=== PATIENT | male | born 1945 | race Two or more races ===

== ENCOUNTER 2021-10-02 10:15 | Inpatient (IN) | payer OTHER, MEDICAID ==
[~2021-10-02] VITALS: Ht 175.3 cm; Wt 91.0 kg
[~2021-10-02 10:15] MED LIST: ALBUAER3 IN; LEVO500T31 PO; OMEP20CA74 PO
[2021-10-02 11:33] LABS: Eosinophils # (auto) 0.2 10 ^3/uL (0-0.8); Hemoglobin 9.7 g/dL (13.5-17.5); Lymphocytes # (auto) 1.2 10 ^3/uL (0.4-5.4); White Blood Cell 6.7 10^3/uL (4.4-10.8)
[2021-10-02 11:35] LABS: Basophils # (auto) 0.1 10 ^3/uL (0-0.2); Basophils % (auto) 2.2 % (0.0-2.0); Eosinophils % (auto) 2.4 % (0.0-7.0); Hematocrit 33.9 % (41.0-53.0); Mean Corpuscular Hemoglobin 17.8 pg (28.0-32.0); Mean Corpuscular Hgb Conc. 28.7 g/dL (32.0-36.0); Mean Corpuscular Volume 61.9 fL (80.0-100.0); Monocytes # (auto) 0.7 10 ^3/uL (0-1.3); Monocytes % (auto) 9.7 % (0.0-12.0); Neutrophils # (auto) 4.6 10 ^3/uL (1.6-8.6); Neutrophils % (auto) 67.7 % (37.0-80.0); Red Blood Cells 5.47 10^6/uL (4.5-5.90); Red Cell Distribution Width 19.7 % (11.8-14.3)
[2021-10-02 12:05] LABS: Albumin 3.3 g/dL (3.4-5.0); Calcium 8.8 mg/dL (8.5-10.1); Potassium 4.1 mmol/L (3.5-5.1)
[2021-10-02 12:11] LABS: BUN/Creatinine Ratio 20.5; Bilirubin, Total 0.7 mg/dL (0.2-1.0); Total Protein 7.6 g/dL (6.4-8.2)
[2021-10-02 13:57] LABS: Urine Bacteria NONE SEEN /hpf (None Seen); Urine Blood Negative /uL (Negative); Urine Specific Gravity 1.024 (1.001-1.035); Urine WBC 3 /hpf (0 - 3)
[2021-10-02 14:06] LABS: Lactic Acid w/Reflex 2.1 mmol/L (0.4-2.0)
[2021-10-02] MEDS ORDERED: ACETAMINOPHEN 325 MG TAB PO PRN (15:15)
[2021-10-02] MEDS ORDERED: DOCUSATE SOD 100 MG CAP PO PRN (15:15)
[2021-10-02] MEDS ORDERED: MORPHINE SULFATE INJ 2 MG/ml SYRG IV PRN ×2 (15:15)
[2021-10-02] MEDS ORDERED: NITROGLYCERIN 0.4 MG SL TAB SL PRN (15:15)
[2021-10-02] MEDS ORDERED: ONDANSETRON HCL 4 MG/2 ML VIAL IV PRN (15:15)
[2021-10-02] MEDS ORDERED: HYDROcodone-ACET 5/325MG TAB PO PRN (15:15)
[2021-10-02] MEDS ORDERED: ENOXAPARIN SOD 100 MG/1 ML SYRINGE SC ONE (15:15)
[2021-10-02 15:42] LABS: Cholesterol 165 mg/dL (< 200)
[2021-10-02 15:45] LABS: HDL Cholesterol 37 mg/dL (40-59); LDL Cholesterol 115 mg/dL (< 100); Triglycerides 146 mg/dL (< 150)
[2021-10-02] MEDS ORDERED: IPRATROPIUM BROM 0.5 MG/2.5ML INH SOL NEB PRN (15:45)
[2021-10-02] MEDS ORDERED: SODIUM CHLORIDE 0.9% 1,000 ML IV ONE (15:45)
[2021-10-02] MEDS ORDERED: ALBUTEROL SULF 2.5 MG/0.5ML(0.5%) NEB SOLN NEB PRN (15:45)
[2021-10-02 16:17] VITALS: BP 115/20
[2021-10-02] MEDS: ENOXAPARIN SOD 100 MG/1 ML SYRINGE SC SCH (16:44)
[2021-10-02] MEDS ORDERED: LEVO50TA7 PO (22:59)
[2021-10-03 00:23] VITALS: BP 127/70
[2021-10-03 05:26] LABS: Basophils # (auto) 0.1 10 ^3/uL (0-0.2); Eosinophils # (auto) 0.3 10 ^3/uL (0-0.8); Hemoglobin 9.9 g/dL (13.5-17.5); Lymphocytes # (auto) 1.1 10 ^3/uL (0.4-5.4); Monocytes # (auto) 0.8 10 ^3/uL (0-1.3)
[2021-10-03 05:28] LABS: Eosinophils % (auto) 4.3 % (0.0-7.0); Hematocrit 33.7 % (41.0-53.0); Lymphocytes % (auto) 18.9 % (10.0-50.0); Mean Corpuscular Hemoglobin 18.1 pg (28.0-32.0); Mean Corpuscular Hgb Conc. 29.3 g/dL (32.0-36.0); Mean Corpuscular Volume 61.7 fL (80.0-100.0); Monocytes % (auto) 13.8 % (0.0-12.0); Neutrophils # (auto) 3.7 10 ^3/uL (1.6-8.6); Nucleated Red Blood Cells % 0.1 %; Red Blood Cells 5.46 10^6/uL (4.5-5.90); Red Cell Distribution Width 19.6 % (11.8-14.3); White Blood Cell 6.1 10^3/uL (4.4-10.8)
[2021-10-03 05:32] VITALS: BP 97/51
[2021-10-03 05:48] LABS: Calcium 8.6 mg/dL (8.5-10.1)
[2021-10-03 05:53] LABS: BUN/Creatinine Ratio 19.6; Bilirubin, Total 0.6 mg/dL (0.2-1.0); Total Protein 7.1 g/dL (6.4-8.2)
[2021-10-03 08:00] VITALS: BP 120/67
[2021-10-03] MEDS: FERROUS SULFATE 325mg EC TAB PO SCH (09:34)
[2021-10-03] MEDS: cefTRIAXone 1GM/50ML D5W 50 ML IV SCH (09:34)
[2021-10-03] MEDS: ENOXAPARIN SOD 100 MG/1 ML SYRINGE SC SCH ×2 (10:02→21:27)
[2021-10-03 11:05] LABS: Ferritin 5.7 ng/mL (10-322)
[2021-10-03 13:00] VITALS: BP 119/62
[2021-10-03 16:52] VITALS: BP 118/67
[2021-10-03 22:03] VITALS: BP 116/62
[2021-10-04 05:12] LABS: Basophils # (auto) 0.1 10 ^3/uL (0-0.2); Eosinophils # (auto) 0.3 10 ^3/uL (0-0.8); Monocytes # (auto) 0.7 10 ^3/uL (0-1.3); Neutrophils # (auto) 3.3 10 ^3/uL (1.6-8.6); Nucleated Red Blood Cells % 0.1 %; White Blood Cell 5.4 10^3/uL (4.4-10.8)
[2021-10-04 05:14] LABS: Basophils % (auto) 1.6 % (0.0-2.0); Eosinophils % (auto) 5.5 % (0.0-7.0); Hematocrit 32.7 % (41.0-53.0); Hemoglobin 9.6 g/dL (13.5-17.5); Lymphocytes # (auto) 1.1 10 ^3/uL (0.4-5.4); Lymphocytes % (auto) 20.1 % (10.0-50.0); Mean Corpuscular Hemoglobin 17.9 pg (28.0-32.0); Mean Corpuscular Hgb Conc. 29.3 g/dL (32.0-36.0); Mean Corpuscular Volume 61.2 fL (80.0-100.0); Monocytes % (auto) 12.1 % (0.0-12.0); Neutrophils % (auto) 60.7 % (37.0-80.0); Red Blood Cells 5.34 10^6/uL (4.5-5.90); Red Cell Distribution Width 19.5 % (11.8-14.3)
[2021-10-04 05:28] VITALS: BP 114/63
[2021-10-04 05:30] LABS: Albumin 3.1 g/dL (3.4-5.0); BUN/Creatinine Ratio 15.7; Calcium 8.9 mg/dL (8.5-10.1); Potassium 4.4 mmol/L (3.5-5.1)
[2021-10-04 05:33] LABS: Bilirubin, Total 0.4 mg/dL (0.2-1.0); Total Protein 6.8 g/dL (6.4-8.2)
[2021-10-04 09:00] VITALS: BP 109/64
[2021-10-04] MEDS: FERROUS SULFATE 325mg EC TAB PO SCH (09:36)
[2021-10-04] MEDS: cefTRIAXone 1GM/50ML D5W 50 ML IV SCH (09:36)
[2021-10-04] MEDS: ENOXAPARIN SOD 100 MG/1 ML SYRINGE SC SCH ×2 (09:37→22:11)
[2021-10-04 13:00] VITALS: BP 110/61
[2021-10-04 22:00] VITALS: BP 103/54
[2021-10-05 05:00] VITALS: BP 107/56
[2021-10-05 07:40] VITALS: BP 104/58
[2021-10-05 08:57] VITALS: BP 107/60
[2021-10-05] MEDS: cefTRIAXone 1GM/50ML D5W 50 ML IV SCH (09:28)
[2021-10-05] MEDS: ENOXAPARIN SOD 100 MG/1 ML SYRINGE SC SCH ×2 (09:28→22:15)
[2021-10-05] MEDS: FERROUS SULFATE 325mg EC TAB PO SCH (09:29)
[2021-10-05] MEDS ORDERED: GASTROGRAFIN 120 ML SOL ONE (09:59)
[2021-10-05 13:00] VITALS: BP 124/49
[2021-10-05 17:21] VITALS: BP 87/50
[2021-10-05 22:00] VITALS: BP 91/45
[2021-10-06 05:00] VITALS: BP 103/60
[2021-10-06] MEDS: LEVOTHYROXINE SODIUM 50 MCG TAB PO SCH (05:50)
[2021-10-06 07:10] LABS: Hematocrit 31.2 % (41.0-53.0); Hemoglobin 9.5 g/dL (13.5-17.5)
[2021-10-06 07:14] LABS: Calcium 9.1 mg/dL (8.5-10.1)
[2021-10-06 07:22] LABS: Magnesium 2.4 mg/dL (1.6-2.6)
[2021-10-06 08:04] VITALS: BP 101/58
[2021-10-06] MEDS: FERROUS SULFATE 325mg EC TAB PO SCH (09:00)
[2021-10-06] MEDS: ENOXAPARIN SOD 100 MG/1 ML SYRINGE SC SCH ×2 (09:00→21:47)
[2021-10-06 13:00] VITALS: BP 114/65
[2021-10-06] MEDS: PANTOPRAZOLE 40 MG/10 ML VIAL INJ IV SCH (13:50)
[2021-10-06 16:30] VITALS: BP 113/65
[2021-10-06 20:00] VITALS: BP 121/62
[2021-10-06] MEDS: metroNIDAZOLE 500MG/100ML 100 ML IV SCH (21:48)
[2021-10-06 22:00] VITALS: BP 121/62
[2021-10-07 05:00] VITALS: BP 113/59
[2021-10-07] MEDS: LEVOTHYROXINE SODIUM 50 MCG TAB PO SCH (06:21)
[2021-10-07] MEDS: metroNIDAZOLE 500MG/100ML 100 ML IV SCH (06:21)
[2021-10-07 07:04] LABS: Hemoglobin 9.5 g/dL (13.5-17.5)
[2021-10-07 07:06] LABS: Hematocrit 31.4 % (41.0-53.0)
[2021-10-07 09:00] VITALS: BP 103/66
[2021-10-07] MEDS: FERROUS SULFATE 325mg EC TAB PO SCH (09:52)
[2021-10-07] MEDS: ENOXAPARIN SOD 100 MG/1 ML SYRINGE SC SCH ×2 (09:53→23:24)
[2021-10-07] MEDS: PANTOPRAZOLE 40 MG/10 ML VIAL INJ IV SCH (09:53)
[2021-10-07 13:00] VITALS: BP 102/62
[2021-10-07 16:56] VITALS: BP 113/61
[2021-10-08] VITALS: BP 113/61
[2021-10-08 05:02] VITALS: BP 109/57
[2021-10-08] MEDS: LEVOTHYROXINE SODIUM 50 MCG TAB PO SCH (06:57)
[2021-10-08 09:00] VITALS: BP 123/69
[2021-10-08] MEDS ORDERED: SACUBITRIL-VALSARTAN 24mg/26mg TAB PO SCH (10:00)
[2021-10-08] MEDS: FERROUS SULFATE 325mg EC TAB PO SCH (10:01)
[2021-10-08] MEDS: PANTOPRAZOLE 40 MG/10 ML VIAL INJ IV SCH (10:01)
[2021-10-08] MEDS: ENOXAPARIN SOD 100 MG/1 ML SYRINGE SC SCH (10:01)
[2021-10-08] MEDS ORDERED: DOCU-94 PO (15:52)
[2021-10-08] MEDS ORDERED: FER325T PO (15:52)
[2021-10-08] MEDS ORDERED: PANT40TA2 PO (15:52)
[2021-10-08] MEDS ORDERED: ALBUAER3 IN (15:58)
[2021-10-08] MEDS ORDERED: APIX5TAB4 PO (15:58)
== END 2021-10-08 17:15 | disposition home or self-care (01) | DRG 393 ==
LOC: ER 10:15 → TELE 15:12 → TELE-WESTW 22:16
PROVIDERS: ADMIT Family Medicine; ATTEND Internal Medicine
DX: K40.90 Unilateral inguinal hernia, without obstruction or gangrene, not specified as recurrent (principal); I26.99 Other pulmonary embolism without acute cor pulmonale; I82.413 Acute embolism and thrombosis of femoral vein, bilateral; J98.11 Atelectasis; E87.2 Acidosis; E46 Unspecified protein-calorie malnutrition; J96.10 Chronic respiratory failure, unspecified whether with hypoxia or hypercapnia; I50.42 Chronic combined systolic (congestive) and diastolic (congestive) heart failure; I82.441 Acute embolism and thrombosis of right tibial vein; Z20.822 Contact with and (suspected) exposure to COVID-19; N45.2 Orchitis; D50.9 Iron deficiency anemia, unspecified; E03.9 Hypothyroidism, unspecified; E11.9 Type 2 diabetes mellitus without complications; E66.9 Obesity, unspecified; E78.5 Hyperlipidemia, unspecified; I11.0 Hypertensive heart disease with heart failure; I25.10 Atherosclerotic heart disease of native coronary artery without angina pectoris; K59.00 Constipation, unspecified; J44.9 Chronic obstructive pulmonary disease, unspecified; Z82.49 Family history of ischemic heart disease and other diseases of the circulatory system; Z83.3 Family history of diabetes mellitus; Z86.16 Personal history of COVID-19; Z87.891 Personal history of nicotine dependence; Z99.81 Dependence on supplemental oxygen; Z68.30 Body mass index [BMI] 30.0-30.9, adult
CPT/HCPCS: 36415; 71045; 71275; 74176; 74250; 76870; 80048; 80053; 80061; 81001; 81241; 82270; 82607; 82728; 83036; 83540; 83550; 83605; 83615; 83735; 83880; 84443; 84484; 85014; 85018; 85025; 85045; 85301; 85302; 85303; 85305; 85306; 85379; 85613; 85670; 85705; 85732; 86147; 86880; 87086; 93005; 93306; 93970; 97110; 97116; 97163; 97530; C9113; G0378; J0696; J3490

== ENCOUNTER 2023-12-24 07:45 | Inpatient (IN) | payer OTHER, MEDICAID ==
[~2023-12-24] VITALS: Ht 175.3 cm
[2023-12-24] VITALS (15 sets, daily range): BP systolic 115–158; BP diastolic 63–100; PULSE 74–113; RESP 14–24; TEMP 98.1–98.3; O2SAT 90–97
[~2023-12-24 07:45] MED LIST changes: +APIX5TAB4 PO; +DOCU-94 PO; +FER325T PO; -LEVO500T31 PO; +LEVO50TA7 PO; -OMEP20CA74 PO; +PANT40TA2 PO
[2023-12-24] MEDS: methylPREDNISolone SOD SUCC 125 MG/2 ML VL IV ONE (08:39)
[2023-12-24 08:40] LABS: Chloride 105 mmol/L (98-107); Potassium 4.2 mmol/L (3.5-5.1); Sodium 140 mmol/L (136-145)
[2023-12-24 08:41] LABS: Anion Gap 6 (5-15); Calcium 10.2 mg/dL (8.7-10.4); Carbon Dioxide 29 mmol/L (20-30)
[2023-12-24 08:46] LABS: BUN/Creatinine Ratio 15.6 (10.0-20.0); Blood Urea Nitrogen 12 mg/dL (9-23); Glucose 93 mg/dL (74-106)
[2023-12-24 08:48] LABS: Basophils # (auto) 0.1 10 ^3/uL (0-0.2); Eosinophils # (auto) 0.1 10 ^3/uL (0-0.8); Hemoglobin 14.9 g/dL (13.5-17.5); Mean Corpuscular Hemoglobin 24.8 pg (28.0-32.0); Red Cell Distribution Width 17.8 % (11.8-14.3); White Blood Cell 10.3 10^3/uL (4.4-10.8)
[2023-12-24 08:49] LABS: Basophils % (auto) 0.7 % (0.0-2.0); Eosinophils % (auto) 0.9 % (0.0-7.0); Hematocrit 46.4 % (41.0-53.0); Lymphocytes # (auto) 1.6 10 ^3/uL (0.4-5.4); Lymphocytes % (auto) 15.5 % (10.0-50.0); Mean Corpuscular Hgb Conc. 32.1 g/dL (32.0-36.0); Mean Corpuscular Volume 77.2 fL (80.0-100.0); Monocytes # (auto) 1.1 10 ^3/uL (0-1.3); Monocytes % (auto) 10.6 % (0.0-12.0); Neutrophils # (auto) 7.5 10 ^3/uL (1.6-8.6); Neutrophils % (auto) 72.3 % (37.0-80.0); Nucleated Red Blood Cells % 0.2 %; Platelet Count (auto) 357 10^3/uL (140-450); Red Blood Cells 6.01 10^6/uL (4.5-5.90)
[2023-12-24] MEDS: ALBUTEROL SULF 2.5 MG/0.5ML(0.5%) NEB SOLN NEB ONE (09:03)
[2023-12-24] MEDS: IPRATROPIUM BROM 0.5 MG/2.5ML INH SOL NEB ONE (09:03)
[2023-12-24 10:24] LABS: Urine Bacteria None Seen /hpf (None Seen)
[2023-12-24 10:31] LABS: Urine Blood Negative /uL (Negative); Urine Clarity Clear (Clear); Urine Color Light-Yellow (Yellow); Urine Protein, UAD Negative (Negative); Urine Specific Gravity 1.021 (1.001-1.035); Urine Urobilinogen Normal (Negative); Urine WBC 4 /hpf (0 - 3); Urine pH 5.5 (5.0-9.0)
[2023-12-24] MEDS ORDERED: NITROGLYCERIN 0.4 MG SL TAB SL PRN (13:15)
[2023-12-24] MEDS ORDERED: MORPHINE SULFATE INJ 2 MG/ml SYRG IV PRN ×2 (13:15)
[2023-12-24] MEDS ORDERED: CHOL20002 PO (13:37)
[2023-12-24] MEDS ORDERED: PANT40T PO (13:37)
[2023-12-24] MEDS ORDERED: APIX5TAB PO (13:37)
[2023-12-24] MEDS: IPRATROPIUM BROM 0.5 MG/2.5ML INH SOL NEB SCH (14:26)
[2023-12-24] MEDS: ALBUTEROL SULF 2.5 MG/0.5ML(0.5%) NEB SOLN NEB SCH (14:26)
[2023-12-24] MEDS ORDERED: ENOXAPARIN SOD 100 MG/1 ML SYRINGE SC ONE (15:00)
[2023-12-24] MEDS: cefTRIAXone 1GM/50ML D5W 50 ML IV SCH (15:04)
[2023-12-24 15:50] LABS: Magnesium 2.1 mg/dL (1.6-2.6)
[2023-12-24] MEDS: IOHEXOL 350 MG/ML 100ML IJ ONE (16:40)
[2023-12-24] MEDS: AZITHROMYCIN 500MG/ 250ML 250 ML IV SCH (17:53)
[2023-12-24] MEDS: ENOXAPARIN SOD 120 MG/0.8 ML SYRINGE SC SCH (17:53)
[2023-12-24] MEDS: ASPirin 325 MG TAB PO ONE (17:54)
[2023-12-24] MEDS: FUROSEMIDE 40 MG/4 ML VIAL IV ONE (17:54)
[2023-12-24] MEDS: FUROSEMIDE 20 MG/2 ML VIAL IV SCH (17:54)
[2023-12-24] MEDS: MORPHINE SULFATE INJ 2 MG/ml SYRG ONE ×2 (18:55→19:04)
[2023-12-24] MEDS: MORPHINE SULFATE INJ 2 MG/ml SYRG IV ONE (19:00)
[2023-12-24] MEDS: ATORVASTATIN 20 MG TAB PO SCH (21:38)
[2023-12-24] MEDS: methylPREDNISolone SOD SUCC 40 MG/ML VL IV SCH (21:38)
[2023-12-24] MEDS ORDERED: APIXABAN 5 MG TAB PO SCH (22:00)
[2023-12-24] MEDS: BUDESONIDE (INHALATION) 0.5 MG/2 ML NEB NEB SCH (22:40)
[2023-12-25] VITALS (29 sets, daily range): BP systolic 101–136; BP diastolic 62–78; PULSE 63–95; RESP 12–20; TEMP 97.1–98.7; O2SAT 86–98
[2023-12-25 05:19] LABS: Basophils # (auto) 0 10 ^3/uL (0-0.2); Eosinophils # (auto) 0 10 ^3/uL (0-0.8); Mean Corpuscular Hemoglobin 25.1 pg (28.0-32.0); Mean Corpuscular Hgb Conc. 32.7 g/dL (32.0-36.0)
[2023-12-25 05:21] LABS: Basophils % (auto) 0.2 % (0.0-2.0); Hematocrit 44.9 % (41.0-53.0); Hemoglobin 14.7 g/dL (13.5-17.5); Lymphocytes # (auto) 0.5 10 ^3/uL (0.4-5.4); Lymphocytes % (auto) 4.9 % (10.0-50.0); Mean Corpuscular Volume 76.6 fL (80.0-100.0); Monocytes # (auto) 0.3 10 ^3/uL (0-1.3); Monocytes % (auto) 3.4 % (0.0-12.0); Neutrophils # (auto) 8.6 10 ^3/uL (1.6-8.6); Neutrophils % (auto) 91.5 % (37.0-80.0); Platelet Count (auto) 304 10^3/uL (140-450); Red Blood Cells 5.86 10^6/uL (4.5-5.90); Red Cell Distribution Width 17.5 % (11.8-14.3); White Blood Cell 9.3 10^3/uL (4.4-10.8)
[2023-12-25 05:30] LABS: Chloride 104 mmol/L (98-107); Potassium 4.1 mmol/L (3.5-5.1); Sodium 139 mmol/L (136-145)
[2023-12-25 05:31] LABS: Anion Gap 2 (5-15); Carbon Dioxide 33 mmol/L (20-30)
[2023-12-25 05:36] LABS: BUN/Creatinine Ratio 17.8 (10.0-20.0); Blood Urea Nitrogen 13 mg/dL (9-23); Glucose 144 mg/dL (74-106)
[2023-12-25] MEDS: PANTOPRAZOLE 40 MG TAB PO SCH (07:30)
[2023-12-25] MEDS: ASPirin 81 mg TAB PO SCH (07:30)
[2023-12-25] MEDS ORDERED: ENOXAPARIN SOD 40 MG/0.4 ML SYRINGE SC SCH (10:00)
[2023-12-25 18:28] LABS: COVID19 ANTIGEN SOFIA FIA NEGATIVE (NEGATIVE)
[2023-12-26] VITALS (19 sets, daily range): BP systolic 103–135; BP diastolic 65–78; PULSE 67–95; RESP 16–20; TEMP 97.8–98.6; O2SAT 92–100
[2023-12-26 07:30] LABS: Basophils # (auto) 0 10 ^3/uL (0-0.2); Eosinophils # (auto) 0 10 ^3/uL (0-0.8)
[2023-12-26 07:31] LABS: Chloride 101 mmol/L (98-107); Potassium 3.8 mmol/L (3.5-5.1); Sodium 139 mmol/L (136-145)
[2023-12-26 07:32] LABS: Anion Gap 8 (5-15); Calcium 10.5 mg/dL (8.7-10.4); Carbon Dioxide 30 mmol/L (20-30); Hematocrit 47.3 % (41.0-53.0); Hemoglobin 15.4 g/dL (13.5-17.5); Lymphocytes % (auto) 5.7 % (10.0-50.0); Mean Corpuscular Hgb Conc. 32.5 g/dL (32.0-36.0); Mean Corpuscular Volume 77.1 fL (80.0-100.0); Monocytes # (auto) 0.8 10 ^3/uL (0-1.3); Monocytes % (auto) 4.3 % (0.0-12.0); Neutrophils # (auto) 16.4 10 ^3/uL (1.6-8.6); Platelet Count (auto) 389 10^3/uL (140-450); Red Blood Cells 6.13 10^6/uL (4.5-5.90); Red Cell Distribution Width 17.6 % (11.8-14.3); White Blood Cell 18.2 10^3/uL (4.4-10.8)
[2023-12-26 07:37] LABS: BUN/Creatinine Ratio 22.6 (10.0-20.0); Blood Urea Nitrogen 21 mg/dL (9-23); Glucose 100 mg/dL (74-106)
[2023-12-26] MEDS: predniSONE 20 MG TAB PO ONE (10:30)
[2023-12-27] VITALS (21 sets, daily range): BP systolic 106–139; BP diastolic 66–82; PULSE 71–92; RESP 16–20; TEMP 97.8–98.2; O2SAT 92–98
[2023-12-27 07:53] LABS: Chloride 101 mmol/L (98-107); Potassium 3.7 mmol/L (3.5-5.1); Sodium 142 mmol/L (136-145)
[2023-12-27 07:54] LABS: Anion Gap 6 (5-15); Calcium 10.2 mg/dL (8.7-10.4); Carbon Dioxide 35 mmol/L (20-30)
[2023-12-27 07:59] LABS: BUN/Creatinine Ratio 27.9 (10.0-20.0); Blood Urea Nitrogen 24 mg/dL (9-23); Glucose 99 mg/dL (74-106)
[2023-12-27 08:00] LABS: Magnesium 2.3 mg/dL (1.6-2.6)
[2023-12-27 08:03] LABS: Basophils # (auto) 0.2 10 ^3/uL (0-0.2); Basophils % (auto) 1.5 % (0.0-2.0); Eosinophils # (auto) 0.7 10 ^3/uL (0-0.8); Eosinophils % (auto) 5.5 % (0.0-7.0); Hematocrit 46.2 % (41.0-53.0); Lymphocytes # (auto) 1.3 10 ^3/uL (0.4-5.4); Lymphocytes % (auto) 9.5 % (10.0-50.0); Mean Corpuscular Hemoglobin 25.3 pg (28.0-32.0); Mean Corpuscular Hgb Conc. 32.5 g/dL (32.0-36.0); Mean Corpuscular Volume 77.7 fL (80.0-100.0); Monocytes # (auto) 1.5 10 ^3/uL (0-1.3); Monocytes % (auto) 11.1 % (0.0-12.0); Neutrophils # (auto) 9.5 10 ^3/uL (1.6-8.6); Neutrophils % (auto) 72.4 % (37.0-80.0); Nucleated Red Blood Cells % 0.4 %; Platelet Count (auto) 369 10^3/uL (140-450); Red Blood Cells 5.95 10^6/uL (4.5-5.90); Red Cell Distribution Width 18.2 % (11.8-14.3); White Blood Cell 13.1 10^3/uL (4.4-10.8)
[2023-12-27] MEDS: predniSONE 20 MG TAB PO SCH (10:03)
[2023-12-27] MEDS: ENOXAPARIN SOD 100 MG/1 ML SYRINGE SC SCH (10:04)
[2023-12-27 13:32] LABS: Amphetamine Screen, Urine Neg (NEGATIVE); Barbiturate Scree,Urine Neg (NEGATIVE); Benzodiazephine Screen, Urine Neg (NEGATIVE); Cocaine Screen, Urine Neg (NEGATIVE); Opiate Scree,Urine Neg (NEGATIVE); Phencyclidine Screen, Urine Neg (NEGATIVE)
[2023-12-27 14:46] LABS: Cannabinoid Screen, Urine Neg (NEGATIVE)
[2023-12-28] VITALS (23 sets, daily range): BP systolic 105–125; BP diastolic 63–78; PULSE 66–86; RESP 14–21; TEMP 97.2–98; O2SAT 91–99
[2023-12-28 06:22] LABS: Basophils # (auto) 0 10 ^3/uL (0-0.2); Basophils % (auto) 0.2 % (0.0-2.0); Hemoglobin 14.5 g/dL (13.5-17.5); Lymphocytes # (auto) 0.9 10 ^3/uL (0.4-5.4); White Blood Cell 9.3 10^3/uL (4.4-10.8)
[2023-12-28 06:24] LABS: Eosinophils # (auto) 0.1 10 ^3/uL (0-0.8); Eosinophils % (auto) 0.6 % (0.0-7.0); Hematocrit 44.4 % (41.0-53.0); Lymphocytes % (auto) 10.2 % (10.0-50.0); Mean Corpuscular Hemoglobin 25.2 pg (28.0-32.0); Mean Corpuscular Hgb Conc. 32.8 g/dL (32.0-36.0); Mean Corpuscular Volume 76.8 fL (80.0-100.0); Monocytes % (auto) 11.3 % (0.0-12.0); Neutrophils # (auto) 7.2 10 ^3/uL (1.6-8.6); Neutrophils % (auto) 77.7 % (37.0-80.0); Nucleated Red Blood Cells % 0.1 %; Platelet Count (auto) 278 10^3/uL (140-450); Red Blood Cells 5.78 10^6/uL (4.5-5.90); Red Cell Distribution Width 17.7 % (11.8-14.3)
[2023-12-28 06:34] LABS: Chloride 102 mmol/L (98-107); Potassium 3.5 mmol/L (3.5-5.1); Sodium 142 mmol/L (136-145)
[2023-12-28 06:35] LABS: Anion Gap 2 (5-15); Carbon Dioxide 38 mmol/L (20-30)
[2023-12-28 06:40] LABS: Blood Urea Nitrogen 24 mg/dL (9-23); Glucose 85 mg/dL (74-106)
[2023-12-28] MEDS: HYDROcodone-ACET 5/325MG TAB PO PRN (21:28)
[2023-12-29] VITALS (20 sets, daily range): BP systolic 92–118; BP diastolic 58–69; PULSE 67–85; RESP 14–19; TEMP 97.7–98.6; O2SAT 89–100
[2023-12-29 06:26] LABS: Basophils # (auto) 0 10 ^3/uL (0-0.2); Basophils % (auto) 0.2 % (0.0-2.0); Eosinophils # (auto) 0.1 10 ^3/uL (0-0.8); Eosinophils % (auto) 1.4 % (0.0-7.0); Hematocrit 44.7 % (41.0-53.0); Hemoglobin 14.7 g/dL (13.5-17.5); Lymphocytes # (auto) 0.9 10 ^3/uL (0.4-5.4); Lymphocytes % (auto) 10.4 % (10.0-50.0); Mean Corpuscular Hemoglobin 25.2 pg (28.0-32.0); Mean Corpuscular Hgb Conc. 32.8 g/dL (32.0-36.0); Mean Corpuscular Volume 76.7 fL (80.0-100.0); Monocytes % (auto) 11.1 % (0.0-12.0); Neutrophils # (auto) 6.7 10 ^3/uL (1.6-8.6); Neutrophils % (auto) 76.9 % (37.0-80.0); Platelet Count (auto) 267 10^3/uL (140-450); Red Blood Cells 5.82 10^6/uL (4.5-5.90); Red Cell Distribution Width 17.5 % (11.8-14.3); White Blood Cell 8.7 10^3/uL (4.4-10.8)
[2023-12-29 06:34] LABS: Anion Gap 4 (5-15); Calcium 10.2 mg/dL (8.7-10.4); Carbon Dioxide 38 mmol/L (20-30); Chloride 100 mmol/L (98-107); Potassium 3.4 mmol/L (3.5-5.1); Sodium 142 mmol/L (136-145)
[2023-12-29 06:40] LABS: BUN/Creatinine Ratio 32.4 (10.0-20.0); Blood Urea Nitrogen 23 mg/dL (9-23); Glucose 86 mg/dL (74-106)
[2023-12-29] MEDS: POTASSIUM EFFERVESENT TAB 25 MEQ PO ONE (07:15)
[2023-12-29] MEDS: DOCUSATE SOD 100 MG CAP PO PRN (08:52)
[2023-12-29] MEDS: POTASSIUM CHL 20 Meq TABLET PO ONE (12:34)
[2023-12-30] VITALS (22 sets, daily range): BP systolic 102–118; BP diastolic 58–69; PULSE 71–86; RESP 16–20; TEMP 97.8–98.3; O2SAT 89–100
[2023-12-30 07:31] LABS: Basophils # (auto) 0 10 ^3/uL (0-0.2); Basophils % (auto) 0.2 % (0.0-2.0); Eosinophils # (auto) 0.2 10 ^3/uL (0-0.8); Eosinophils % (auto) 2.4 % (0.0-7.0); Hemoglobin 14.6 g/dL (13.5-17.5); Lymphocytes % (auto) 13.1 % (10.0-50.0); Monocytes # (auto) 0.8 10 ^3/uL (0-1.3)
[2023-12-30 07:32] LABS: Hematocrit 45.6 % (41.0-53.0); Lymphocytes # (auto) 1.1 10 ^3/uL (0.4-5.4); Mean Corpuscular Hemoglobin 24.6 pg (28.0-32.0); Mean Corpuscular Hgb Conc. 32.1 g/dL (32.0-36.0); Mean Corpuscular Volume 76.8 fL (80.0-100.0); Monocytes % (auto) 9.5 % (0.0-12.0); Neutrophils % (auto) 74.8 % (37.0-80.0); Platelet Count (auto) 277 10^3/uL (140-450); Red Blood Cells 5.94 10^6/uL (4.5-5.90); Red Cell Distribution Width 17.6 % (11.8-14.3)
[2023-12-30 07:33] LABS: Anion Gap 5 (5-15); Calcium 10.4 mg/dL (8.7-10.4); Carbon Dioxide 38 mmol/L (20-30); Chloride 98 mmol/L (98-107); Potassium 3.5 mmol/L (3.5-5.1); Sodium 141 mmol/L (136-145)
[2023-12-30 07:38] LABS: BUN/Creatinine Ratio 35.4 (10.0-20.0); Blood Urea Nitrogen 28 mg/dL (9-23); Glucose 81 mg/dL (74-106)
[2023-12-30 09:48] LABS: INR 1.06 (0.9-1.15); Partial Thromboplastin Time 33.3 SEC (24.5-34.5); Prothrombin Time 11.2 sec (9.3-11.8)
[2023-12-31] VITALS (83 sets, daily range): BP systolic 103–164; BP diastolic 56–95; PULSE 61–95; RESP 12–29; TEMP 97.6–98.4; O2SAT 91–100
[2023-12-31 03:13] LABS: Base Excess 8.3 mmol/L (-2.0-3.0)
[2023-12-31 05:19] LABS: Alanine Aminotransferase 40 U/L (7-40); Alkaline Phosphatase 85 U/L (46-116); Anion Gap 3 (5-15); Aspartate Aminotransferase 28 U/L (13-40); BUN/Creatinine Ratio 29.3 (10.0-20.0); Blood Urea Nitrogen 22 mg/dL (9-23); Calcium 10.6 mg/dL (8.7-10.4); Carbon Dioxide 34 mmol/L (20-30); Chloride 101 mmol/L (98-107); Glucose 95 mg/dL (74-106); Magnesium 2.4 mg/dL (1.6-2.6); Sodium 138 mmol/L (136-145)
[2023-12-31 05:20] LABS: Albumin 4.4 g/dL (3.2-4.8); Bilirubin, Total 0.8 mg/dL (0.2-1.0); Total Protein 7.3 g/dL (5.7-8.2)
[2023-12-31] MEDS: MORPHINE SULFATE INJ 2 MG/ml SYRG IV ONE (05:21)
[2023-12-31] MEDS ORDERED: fentaNYL CITRATE 100 MCG/2 ML VL ONE (05:28)
[2023-12-31] MEDS ORDERED: MIDAZOLAM HCL 2MG/2ML 2ml VIAL (1mg/ml) ONE (05:28)
[2023-12-31] MEDS ORDERED: KETAMINE 50mg/ML 1ml syringe ONE (05:28)
[2023-12-31] MEDS ORDERED: PHENYLEPHRINE HCL 10 MG/ML VL ONE (05:29)
[2023-12-31] MEDS ORDERED: LIDOCAINE 2% (LOCAL ANESTH.) PF 5ml SDV ONE (05:29)
[2023-12-31] MEDS ORDERED: HYDROCORTISONE SOD SUCC 100 MG/2ML INJ VIAL ONE (05:29)
[2023-12-31] MEDS ORDERED: ROCURONIUM 10MG/ML 10ML VIAL IV ONE (05:29)
[2023-12-31] MEDS ORDERED: ETOMIDATE (2MG/ML) 20ML VIAL IV ONE (05:29)
[2023-12-31] MEDS ORDERED: HYDROmorphone HCL 2 MG/ML VL/or syr ONE (06:42)
[2023-12-31] MEDS: MIDAZOLAM DRIP 50 mg/50mL 50 ML IV SCH (07:21)
[2023-12-31] MEDS: D5W/SOD CHL 0.45%/KCL 20MEQ 1,000 ML IV SCH (07:28)
[2023-12-31] MEDS: fentaNYL Drip 2500mCg/250mlNS 250 ML IV SCH (07:52)
[2023-12-31] MEDS: SUCCINYLCHOLINE CHLORIDE 20 MG/ML 10ML VIAL IV ONE ×3 (08:38→08:39)
[2023-12-31] MEDS: MIDAZOLAM DRIP 50 mg/50mL 50 ML IV ONE (08:38)
[2023-12-31] MEDS: FAMOTIDINE (10MG/ML) 2ML VL IV ONE (08:38)
[2023-12-31] MEDS: ceFAZolin 2 GM/D5W100ml 100 ML IV ONE (08:38)
[2023-12-31] MEDS: BUPIVACAINE 0.5% P/F INJ 10 ML VIAL ONE (08:38)
[2023-12-31] MEDS: fentaNYL Drip 2500mCg/250mlNS 250 ML IV ONE (08:39)
[2023-12-31] MEDS: ETOMIDATE (2MG/ML) 20ML VIAL IV ONE (08:39)
[2023-12-31] MEDS: FUROSEMIDE 40 MG/4 ML VIAL IV ONE (08:59)
[2023-12-31 09:10] LABS: Basophils # (auto) 0 10 ^3/uL (0-0.2); Basophils % (auto) 0.2 % (0.0-2.0); Eosinophils # (auto) 0.1 10 ^3/uL (0-0.8); Eosinophils % (auto) 0.5 % (0.0-7.0); Hematocrit 48.3 % (41.0-53.0); Hemoglobin 15.3 g/dL (13.5-17.5); Lymphocytes # (auto) 0.5 10 ^3/uL (0.4-5.4); Lymphocytes % (auto) 3.7 % (10.0-50.0); Mean Corpuscular Hemoglobin 24.6 pg (28.0-32.0); Mean Corpuscular Hgb Conc. 31.7 g/dL (32.0-36.0); Mean Corpuscular Volume 77.7 fL (80.0-100.0); Monocytes # (auto) 0.9 10 ^3/uL (0-1.3); Monocytes % (auto) 5.8 % (0.0-12.0); Neutrophils # (auto) 13.2 10 ^3/uL (1.6-8.6); Neutrophils % (auto) 89.8 % (37.0-80.0); Platelet Count (auto) 269 10^3/uL (140-450); Red Blood Cells 6.21 10^6/uL (4.5-5.90); White Blood Cell 14.7 10^3/uL (4.4-10.8)
[2023-12-31 09:31] LABS: INR 1.02 (0.9-1.15); Partial Thromboplastin Time 28.8 SEC (24.5-34.5); Prothrombin Time 10.8 sec (9.3-11.8)
[2023-12-31] MEDS: PANTOPRAZOLE 40 MG/10 ML VIAL INJ IV SCH (09:55)
[2023-12-31 11:13] LABS: Chloride 101 mmol/L (98-107); Potassium 3.9 mmol/L (3.5-5.1); Sodium 140 mmol/L (136-145)
[2023-12-31 11:14] LABS: Anion Gap 4 (5-15); Calcium 10.3 mg/dL (8.7-10.4); Carbon Dioxide 35 mmol/L (20-31)
[2023-12-31 11:19] LABS: BUN/Creatinine Ratio 25.6 (10.0-20.0); Blood Urea Nitrogen 21 mg/dL (9-23); Glucose 118 mg/dL (74-106)
[2023-12-31] MEDS: NOREPINEPHRINE 8 MG/250ML KIT 250 ML IV SCH (13:45)
[2023-12-31] MEDS: FUROSEMIDE 40 MG/4 ML VIAL IV SCH (19:40)
[2023-12-31 22:58] LABS: Hematocrit 48.9 % (41.0-53.0)
[2024-01-01] VITALS (106 sets, daily range): BP systolic 82–125; BP diastolic 50–92; PULSE 86–110; RESP 12–28; TEMP 98.5–99.4; O2SAT 91–96
[2024-01-01 04:41] LABS: Basophils # (auto) 0 10 ^3/uL (0-0.2); Eosinophils # (auto) 0.3 10 ^3/uL (0-0.8); Nucleated Red Blood Cells % 0.1 %
[2024-01-01 04:46] LABS: Basophils % (auto) 0.4 % (0.0-2.0); Eosinophils % (auto) 2.5 % (0.0-7.0); Hematocrit 48.1 % (41.0-53.0); Hemoglobin 15.6 g/dL (13.5-17.5); Lymphocytes % (auto) 7.7 % (10.0-50.0); Mean Corpuscular Hgb Conc. 32.5 g/dL (32.0-36.0); Mean Corpuscular Volume 76.9 fL (80.0-100.0); Monocytes # (auto) 1.6 10 ^3/uL (0-1.3); Monocytes % (auto) 12.4 % (0.0-12.0); Neutrophils # (auto) 9.8 10 ^3/uL (1.6-8.6); Platelet Count (auto) 274 10^3/uL (140-450); Red Blood Cells 6.26 10^6/uL (4.5-5.90); Red Cell Distribution Width 17.4 % (11.8-14.3); White Blood Cell 12.7 10^3/uL (4.4-10.8)
[2024-01-01 04:52] LABS: INR 1.07 (0.9-1.15); Partial Thromboplastin Time 29.3 SEC (24.5-34.5); Prothrombin Time 11.3 sec (9.3-11.8)
[2024-01-01 05:01] LABS: Alanine Aminotransferase 33 U/L (7-40); Albumin 4.1 g/dL (3.2-4.8); Alkaline Phosphatase 85 U/L (46-116); Anion Gap 6 (5-15); Aspartate Aminotransferase 19 U/L (13-40); BUN/Creatinine Ratio 23.8 (10.0-20.0); Bilirubin, Total 0.9 mg/dL (0.2-1.0); Blood Urea Nitrogen 24 mg/dL (9-23); Calcium 10.4 mg/dL (8.7-10.4); Carbon Dioxide 37 mmol/L (20-31); Chloride 98 mmol/L (98-107); Glucose 115 mg/dL (74-106); Magnesium 2.2 mg/dL (1.6-2.6); Potassium 4.1 mmol/L (3.5-5.1); Sodium 141 mmol/L (136-145); Total Protein 6.9 g/dL (5.7-8.2)
[2024-01-01 07:17] LABS: Base Excess 9.4 mmol/L (-2.0-3.0)
[2024-01-01] MEDS: Glucerna 1.2 Cal 1Liter BOTTLE GT SCH (20:37)
[2024-01-02] VITALS (104 sets, daily range): BP systolic 75–120; BP diastolic 47–73; PULSE 83–102; RESP 15–20; TEMP 97.7–99.3; O2SAT 91–98
[2024-01-02 04:54] LABS: Basophils # (auto) 0.1 10 ^3/uL (0-0.2); Eosinophils # (auto) 0.2 10 ^3/uL (0-0.8); Hemoglobin 15.3 g/dL (13.5-17.5); Monocytes # (auto) 2.2 10 ^3/uL (0-1.3); Nucleated Red Blood Cells % 0.1 %; Red Cell Distribution Width 17.7 % (11.8-14.3)
[2024-01-02 04:57] LABS: Basophils % (auto) 0.4 % (0.0-2.0); Eosinophils % (auto) 1.4 % (0.0-7.0); Lymphocytes # (auto) 1.1 10 ^3/uL (0.4-5.4); Lymphocytes % (auto) 6.4 % (10.0-50.0); Mean Corpuscular Hemoglobin 25.1 pg (28.0-32.0); Mean Corpuscular Hgb Conc. 32.6 g/dL (32.0-36.0); Mean Corpuscular Volume 76.9 fL (80.0-100.0); Monocytes % (auto) 13.5 % (0.0-12.0); Neutrophils % (auto) 78.3 % (37.0-80.0); Platelet Count (auto) 293 10^3/uL (140-450); Red Blood Cells 6.11 10^6/uL (4.5-5.90); White Blood Cell 16.6 10^3/uL (4.4-10.8)
[2024-01-02 05:14] LABS: Alanine Aminotransferase 33 U/L (7-40); Alkaline Phosphatase 102 U/L (46-116); Anion Gap 6 (5-15); BUN/Creatinine Ratio 28.1 (10.0-20.0); Blood Urea Nitrogen 25 mg/dL (9-23); Calcium 10.6 mg/dL (8.7-10.4); Carbon Dioxide 36 mmol/L (20-31); Chloride 99 mmol/L (98-107); Glucose 139 mg/dL (74-106); Magnesium 2.4 mg/dL (1.6-2.6); Potassium 3.8 mmol/L (3.5-5.1); Sodium 141 mmol/L (136-145)
[2024-01-02 05:16] LABS: Aspartate Aminotransferase 21 U/L (13-40); Total Protein 6.7 g/dL (5.7-8.2)
[2024-01-02 07:25] LABS: Base Excess 9.8 mmol/L (-2.0-3.0)
[2024-01-02] MEDS ORDERED: BUMETANIDE 2.5mg/10ml (0.25 mg/ml) INJ IV ONE (10:30)
[2024-01-02] MEDS: FUROSEMIDE 40 MG/4 ML VIAL IV SCH (10:57)
[2024-01-02] MEDS: levoFLOXacin 750MG 150 ML IV ONE (15:35)
[2024-01-03] VITALS (107 sets, daily range): BP systolic 88–117; BP diastolic 47–70; PULSE 81–99; RESP 14–30; TEMP 97.8–98.8; O2SAT 92–98
[2024-01-03 05:01] LABS: Basophils # (auto) 0 10 ^3/uL (0-0.2); Eosinophils # (auto) 0.2 10 ^3/uL (0-0.8); Lymphocytes # (auto) 0.8 10 ^3/uL (0.4-5.4); Mean Corpuscular Volume 77.5 fL (80.0-100.0)
[2024-01-03 05:04] LABS: Basophils % (auto) 0.2 % (0.0-2.0); Eosinophils % (auto) 1.1 % (0.0-7.0); Hematocrit 44.8 % (41.0-53.0); Hemoglobin 14.7 g/dL (13.5-17.5); Lymphocytes % (auto) 5.3 % (10.0-50.0); Mean Corpuscular Hemoglobin 25.5 pg (28.0-32.0); Mean Corpuscular Hgb Conc. 32.9 g/dL (32.0-36.0); Monocytes # (auto) 2.2 10 ^3/uL (0-1.3); Monocytes % (auto) 13.8 % (0.0-12.0); Neutrophils # (auto) 12.7 10 ^3/uL (1.6-8.6); Neutrophils % (auto) 79.6 % (37.0-80.0); Platelet Count (auto) 259 10^3/uL (140-450); Red Blood Cells 5.78 10^6/uL (4.5-5.90); Red Cell Distribution Width 17.7 % (11.8-14.3)
[2024-01-03 05:25] LABS: Alanine Aminotransferase 28 U/L (7-40); Albumin 3.7 g/dL (3.2-4.8); Alkaline Phosphatase 100 U/L (46-116); Anion Gap 6 (5-15); Aspartate Aminotransferase 19 U/L (13-40); BUN/Creatinine Ratio 32.1 (10.0-20.0); Bilirubin, Total 0.9 mg/dL (0.2-1.0); Blood Urea Nitrogen 25 mg/dL (9-23); Calcium 10.6 mg/dL (8.7-10.4); Carbon Dioxide 36 mmol/L (20-31); Chloride 100 mmol/L (98-107); Glucose 131 mg/dL (74-106); Potassium 3.7 mmol/L (3.5-5.1); Sodium 142 mmol/L (136-145); Total Protein 6.4 g/dL (5.7-8.2)
[2024-01-03 07:12] LABS: Base Excess 9.9 mmol/L (-2.0-3.0)
[2024-01-03] MEDS: levoFLOXacin 750MG 150 ML IV SCH (09:48)
[2024-01-03] MEDS ORDERED: DEXTROSE (50%) 50ML SYRG IV PRN (15:15)
[2024-01-03] MEDS: ACCU-CHEK COMFORT CURVE STRIP VI SCH (16:48)
[2024-01-03] MEDS: InsuLIN REG 1unit/0.01ml Soln (100units/ml) SC SCH ×2 (17:36→21:18)
[2024-01-04] VITALS (108 sets, daily range): BP systolic 91–119; BP diastolic 53–80; PULSE 60–97; RESP 13–24; TEMP 97.4–98.8; O2SAT 88–99
[2024-01-04 04:28] LABS: Basophils # (auto) 0 10 ^3/uL (0-0.2); Eosinophils # (auto) 0.2 10 ^3/uL (0-0.8)
[2024-01-04 04:31] LABS: Basophils % (auto) 0.2 % (0.0-2.0); Eosinophils % (auto) 1.8 % (0.0-7.0); Hematocrit 42.8 % (41.0-53.0); Hemoglobin 13.9 g/dL (13.5-17.5); Lymphocytes # (auto) 1.1 10 ^3/uL (0.4-5.4); Lymphocytes % (auto) 8.3 % (10.0-50.0); Mean Corpuscular Hemoglobin 25.2 pg (28.0-32.0); Mean Corpuscular Hgb Conc. 32.6 g/dL (32.0-36.0); Mean Corpuscular Volume 77.3 fL (80.0-100.0); Monocytes # (auto) 1.9 10 ^3/uL (0-1.3); Monocytes % (auto) 14.1 % (0.0-12.0); Neutrophils % (auto) 75.6 % (37.0-80.0); Platelet Count (auto) 296 10^3/uL (140-450); Red Blood Cells 5.54 10^6/uL (4.5-5.90); Red Cell Distribution Width 18.3 % (11.8-14.3); White Blood Cell 13.2 10^3/uL (4.4-10.8)
[2024-01-04 04:47] LABS: Alanine Aminotransferase 20 U/L (7-40); Alkaline Phosphatase 92 U/L (46-116); Anion Gap 4 (5-15); BUN/Creatinine Ratio 27.8 (10.0-20.0); Blood Urea Nitrogen 25 mg/dL (9-23); Calcium 10.6 mg/dL (8.7-10.4); Carbon Dioxide 36 mmol/L (20-31); Chloride 103 mmol/L (98-107); Glucose 128 mg/dL (74-106); Potassium 3.6 mmol/L (3.5-5.1); Sodium 143 mmol/L (136-145)
[2024-01-04 04:48] LABS: Aspartate Aminotransferase 18 U/L (13-40); Bilirubin, Total 0.9 mg/dL (0.2-1.0); Total Protein 6.4 g/dL (5.7-8.2)
[2024-01-04 05:21] LABS: Albumin 3.7 g/dL (3.2-4.8)
[2024-01-04 06:29] LABS: Base Excess 9.1 mmol/L (-2.0-3.0)
[2024-01-05] VITALS (109 sets, daily range): BP systolic 81–136; BP diastolic 44–78; PULSE 72–95; RESP 16–29; TEMP 97.9–98.4; O2SAT 90–99
[2024-01-05] MEDS: DOCUSATE ORAL LIQUID 100 MG/10 ML UD GT SCH (00:05)
[2024-01-05 04:09] LABS: Basophils # (auto) 0.1 10 ^3/uL (0-0.2); Basophils % (auto) 0.6 % (0.0-2.0); Eosinophils # (auto) 0.3 10 ^3/uL (0-0.8); Eosinophils % (auto) 2.5 % (0.0-7.0); Hematocrit 40.8 % (41.0-53.0); Hemoglobin 13.2 g/dL (13.5-17.5); Lymphocytes # (auto) 0.7 10 ^3/uL (0.4-5.4); Mean Corpuscular Hemoglobin 25.1 pg (28.0-32.0); Mean Corpuscular Hgb Conc. 32.4 g/dL (32.0-36.0); Mean Corpuscular Volume 77.6 fL (80.0-100.0); Monocytes # (auto) 1.5 10 ^3/uL (0-1.3); Monocytes % (auto) 13.7 % (0.0-12.0); Neutrophils # (auto) 8.6 10 ^3/uL (1.6-8.6); Neutrophils % (auto) 77.2 % (37.0-80.0); Nucleated Red Blood Cells % 0.1 %; Platelet Count (auto) 259 10^3/uL (140-450); Red Blood Cells 5.25 10^6/uL (4.5-5.90); Red Cell Distribution Width 18.2 % (11.8-14.3); White Blood Cell 11.1 10^3/uL (4.4-10.8)
[2024-01-05 04:10] LABS: Chloride 105 mmol/L (98-107); Potassium 3.2 mmol/L (3.5-5.1); Sodium 146 mmol/L (136-145)
[2024-01-05 04:11] LABS: Anion Gap 4 (5-15); Carbon Dioxide 37 mmol/L (20-31)
[2024-01-05 04:12] LABS: Calcium 10.3 mg/dL (8.7-10.4)
[2024-01-05 04:16] LABS: Glucose 143 mg/dL (74-106)
[2024-01-05 04:17] LABS: BUN/Creatinine Ratio 28.4 (10.0-20.0); Blood Urea Nitrogen 25 mg/dL (9-23); Magnesium 2.3 mg/dL (1.6-2.6)
[2024-01-05 06:54] LABS: Base Excess 5.6 mmol/L (-2.0-3.0)
[2024-01-05] MEDS: POTASSIUM EFFERVESENT TAB 25 MEQ GT ONE (08:56)
[2024-01-05] MEDS: POTASSIUM CHL 20MEQ/100ML 100 ML IV ONE (08:57)
[2024-01-05] MEDS: ACETYLCYSTEINE 20%(200MG/ML) SOL 4ML NEB SCH (10:30)
[2024-01-05] MEDS: ROCURONIUM 10MG/ML 10ML VIAL IV ONE ×2 (20:51→21:00)
[2024-01-06] VITALS (111 sets, daily range): BP systolic 85–110; BP diastolic 47–71; PULSE 72–102; RESP 15–37; TEMP 98.2–99.8; O2SAT 88–97
[2024-01-06 04:35] LABS: Basophils # (auto) 0.1 10 ^3/uL (0-0.2); Basophils % (auto) 0.5 % (0.0-2.0); Eosinophils # (auto) 0.3 10 ^3/uL (0-0.8); Nucleated Red Blood Cells % 0.1 %
[2024-01-06 04:38] LABS: Hematocrit 42.2 % (41.0-53.0); Hemoglobin 13.5 g/dL (13.5-17.5); Mean Corpuscular Hemoglobin 24.9 pg (28.0-32.0); Mean Corpuscular Hgb Conc. 32.1 g/dL (32.0-36.0); Mean Corpuscular Volume 77.6 fL (80.0-100.0); Monocytes % (auto) 12.6 % (0.0-12.0); Neutrophils # (auto) 12.6 10 ^3/uL (1.6-8.6); Neutrophils % (auto) 78.9 % (37.0-80.0); Platelet Count (auto) 298 10^3/uL (140-450); Red Blood Cells 5.43 10^6/uL (4.5-5.90); Red Cell Distribution Width 18.6 % (11.8-14.3)
[2024-01-06 04:45] LABS: Alanine Aminotransferase 19 U/L (7-40); Albumin 3.7 g/dL (3.2-4.8); Alkaline Phosphatase 92 U/L (46-116); Anion Gap 7 (5-15); Aspartate Aminotransferase 34 U/L (13-40); BUN/Creatinine Ratio 26.4 (10.0-20.0); Bilirubin, Total 0.7 mg/dL (0.2-1.0); Blood Urea Nitrogen 23 mg/dL (9-23); Calcium 10.2 mg/dL (8.7-10.4); Carbon Dioxide 36 mmol/L (20-31); Chloride 105 mmol/L (98-107); Glucose 140 mg/dL (74-106); Potassium 3.8 mmol/L (3.5-5.1); Sodium 148 mmol/L (136-145); Total Protein 6.3 g/dL (5.7-8.2)
[2024-01-06 07:23] LABS: Base Excess 6.2 mmol/L (-2.0-3.0)
[2024-01-07] VITALS (116 sets, daily range): BP systolic 83–127; BP diastolic 44–69; PULSE 80–99; RESP 14–34; TEMP 98.7–100.3; O2SAT 88–97
[2024-01-07 04:18] LABS: Basophils # (auto) 0 10 ^3/uL (0-0.2); Basophils % (auto) 0.3 % (0.0-2.0); Eosinophils # (auto) 0.4 10 ^3/uL (0-0.8); Eosinophils % (auto) 3.1 % (0.0-7.0); Hematocrit 40.1 % (41.0-53.0); Hemoglobin 12.9 g/dL (13.5-17.5); Lymphocytes # (auto) 0.7 10 ^3/uL (0.4-5.4); Lymphocytes % (auto) 5.9 % (10.0-50.0); Mean Corpuscular Hemoglobin 25.3 pg (28.0-32.0); Mean Corpuscular Hgb Conc. 32.2 g/dL (32.0-36.0); Mean Corpuscular Volume 78.7 fL (80.0-100.0); Monocytes # (auto) 1.7 10 ^3/uL (0-1.3); Monocytes % (auto) 13.3 % (0.0-12.0); Neutrophils # (auto) 9.8 10 ^3/uL (1.6-8.6); Neutrophils % (auto) 77.4 % (37.0-80.0); Platelet Count (auto) 285 10^3/uL (140-450); Red Cell Distribution Width 18.5 % (11.8-14.3); White Blood Cell 12.7 10^3/uL (4.4-10.8)
[2024-01-07 04:28] LABS: INR 1.23 (0.9-1.15); Partial Thromboplastin Time 35.7 SEC (24.5-34.5); Prothrombin Time 12.8 sec (9.3-11.8)
[2024-01-07 04:35] LABS: Alanine Aminotransferase 20 U/L (7-40); Albumin 3.5 g/dL (3.2-4.8); Alkaline Phosphatase 97 U/L (46-116); Anion Gap 4 (5-15); Aspartate Aminotransferase 27 U/L (13-40); BUN/Creatinine Ratio 23.7 (10.0-20.0); Bilirubin, Total 0.6 mg/dL (0.2-1.0); Blood Urea Nitrogen 22 mg/dL (9-23); Calcium 9.9 mg/dL (8.7-10.4); Carbon Dioxide 38 mmol/L (20-31); Chloride 108 mmol/L (98-107); Glucose 162 mg/dL (74-106); Magnesium 2.2 mg/dL (1.6-2.6); Potassium 3.9 mmol/L (3.5-5.1); Sodium 150 mmol/L (136-145)
[2024-01-07 04:36] LABS: Total Protein 6.1 g/dL (5.7-8.2)
[2024-01-07 07:19] LABS: Base Excess 7.3 mmol/L (-2.0-3.0)
[2024-01-07] MEDS: FREE WATER GT SCH (08:06)
[2024-01-07] MEDS: MEROPENEM 1GM IVPB 50 ML IV SCH (10:01)
[2024-01-07] MEDS: LACTULOSE 20Gm/30ML SOLN PO ONE (10:01)
[2024-01-07] MEDS: POTASSIUM EFFERVESENT TAB 25 MEQ GT SCH (10:01)
[2024-01-07] MEDS: NOREPINEPHRINE BITARTRATE 32 MG in SODIUM CHL 0.9% 218 ML IV SCH (10:02)
[2024-01-07] MEDS: METOCLOPRAMIDE HCL 5MG/ml INJ 2ml VIAL IV SCH (12:56)
[2024-01-07] MEDS: EPINEPHrine HCL 250 ML IV SCH (14:15)
[2024-01-07] MEDS: PHENYLEPHRINE IV 250 ML IV SCH (14:15)
[2024-01-07] MEDS: ROCURONIUM 10MG/ML 10ML VIAL IV ONE (14:39)
[2024-01-07] MEDS: PHENYLEPHRINE IV 250 ML IV ONE (14:39)
[2024-01-07] MEDS: FUROSEMIDE 40 MG/4 ML VIAL IV ONE (16:57)
[2024-01-08] VITALS (112 sets, daily range): BP systolic 80–169; BP diastolic 43–77; PULSE 66–89; RESP 11–31; TEMP 97.7–99.9; O2SAT 89–99
[2024-01-08 04:13] LABS: Basophils # (auto) 0.1 10 ^3/uL (0-0.2)
[2024-01-08 04:16] LABS: Basophils % (auto) 0.5 % (0.0-2.0); Eosinophils # (auto) 0.3 10 ^3/uL (0-0.8); Eosinophils % (auto) 1.9 % (0.0-7.0); Hematocrit 41.8 % (41.0-53.0); Hemoglobin 13.8 g/dL (13.5-17.5); Lymphocytes # (auto) 0.8 10 ^3/uL (0.4-5.4); Lymphocytes % (auto) 4.5 % (10.0-50.0); Mean Corpuscular Hemoglobin 25.6 pg (28.0-32.0); Mean Corpuscular Hgb Conc. 32.9 g/dL (32.0-36.0); Mean Corpuscular Volume 77.7 fL (80.0-100.0); Neutrophils # (auto) 14.5 10 ^3/uL (1.6-8.6); Neutrophils % (auto) 82.1 % (37.0-80.0); Platelet Count (auto) 262 10^3/uL (140-450); Red Blood Cells 5.38 10^6/uL (4.5-5.90); Red Cell Distribution Width 18.7 % (11.8-14.3); White Blood Cell 17.7 10^3/uL (4.4-10.8)
[2024-01-08 04:19] LABS: INR 1.25 (0.9-1.15); Partial Thromboplastin Time 32.4 SEC (24.5-34.5)
[2024-01-08 04:26] LABS: Alanine Aminotransferase 33 U/L (7-40); Albumin 3.4 g/dL (3.2-4.8); Alkaline Phosphatase 127 U/L (46-116); Anion Gap 6 (5-15); Aspartate Aminotransferase 48 U/L (13-40); BUN/Creatinine Ratio 17.8 (10.0-20.0); Bilirubin, Total 0.9 mg/dL (0.2-1.0); Blood Urea Nitrogen 16 mg/dL (9-23); Calcium 9.9 mg/dL (8.7-10.4); Carbon Dioxide 37 mmol/L (20-31); Chloride 107 mmol/L (98-107); Glucose 144 mg/dL (74-106); Magnesium 2.1 mg/dL (1.6-2.6); Potassium 2.9 mmol/L (3.5-5.1); Sodium 150 mmol/L (136-145); Total Protein 6.1 g/dL (5.7-8.2)
[2024-01-08] MEDS: POTASSIUM CHL 20MEQ/100ML 100 ML IV SCH ×2 (05:32→18:02)
[2024-01-08 06:06] LABS: Base Excess 7.4 mmol/L (-2.0-3.0)
[2024-01-08] MEDS: D5W 5% 1,000 ML IV SCH ×2 (07:30→16:30)
[2024-01-08] MEDS: VASOPRESSIN 20 UNITS in SODIUM CHL 0.9% 99 ML IV SCH (09:41)
[2024-01-08] MEDS: BUPIVACAINE W/ EPINEPH 0.5% MPF 30ML VIAL IJ ONE (11:10)
[2024-01-08] MEDS: POVIDONE IODINE 10 % TOPICAL OINT 30GM TOP ONE (11:32)
[2024-01-08] MEDS: ALBUMIN 25% 50 ML IV SCH (12:55)
[2024-01-08 15:34] LABS: Chloride 107 mmol/L (98-107); Potassium 3.3 mmol/L (3.5-5.1); Sodium 150 mmol/L (136-145)
[2024-01-08 15:35] LABS: Anion Gap 5 (5-15); Calcium 9.8 mg/dL (8.7-10.4); Carbon Dioxide 38 mmol/L (20-31)
[2024-01-08 15:40] LABS: Blood Urea Nitrogen 16 mg/dL (9-23); Glucose 153 mg/dL (74-106)
[2024-01-09] VITALS (117 sets, daily range): BP systolic 69–167; BP diastolic 34–130; PULSE 67–86; RESP 18–25; TEMP 98.1–100; O2SAT 90–99
[2024-01-09 03:42] LABS: Basophils # (auto) 0 10 ^3/uL (0-0.2); Basophils % (auto) 0.3 % (0.0-2.0); Eosinophils # (auto) 0.4 10 ^3/uL (0-0.8); Monocytes # (auto) 1.3 10 ^3/uL (0-1.3); Nucleated Red Blood Cells % 0.1 %
[2024-01-09 03:46] LABS: Eosinophils % (auto) 3.2 % (0.0-7.0); Hematocrit 34.6 % (41.0-53.0); Hemoglobin 11.2 g/dL (13.5-17.5); Lymphocytes # (auto) 0.8 10 ^3/uL (0.4-5.4); Lymphocytes % (auto) 6.2 % (10.0-50.0); Mean Corpuscular Hemoglobin 25.2 pg (28.0-32.0); Mean Corpuscular Hgb Conc. 32.4 g/dL (32.0-36.0); Monocytes % (auto) 10.9 % (0.0-12.0); Neutrophils # (auto) 9.7 10 ^3/uL (1.6-8.6); Neutrophils % (auto) 79.4 % (37.0-80.0); Platelet Count (auto) 243 10^3/uL (140-450); Red Blood Cells 4.44 10^6/uL (4.5-5.90); Red Cell Distribution Width 19.1 % (11.8-14.3); White Blood Cell 12.2 10^3/uL (4.4-10.8)
[2024-01-09 04:05] LABS: Alanine Aminotransferase 27 U/L (7-40); Albumin 3.4 g/dL (3.2-4.8); Alkaline Phosphatase 109 U/L (46-116); Anion Gap 5 (5-15); Aspartate Aminotransferase 41 U/L (13-40); BUN/Creatinine Ratio 19.7 (10.0-20.0); Blood Urea Nitrogen 14 mg/dL (9-23); Calcium 9.4 mg/dL (8.7-10.4); Carbon Dioxide 34 mmol/L (20-31); Chloride 104 mmol/L (98-107); Glucose 162 mg/dL (74-106); Potassium 3.8 mmol/L (3.5-5.1); Sodium 143 mmol/L (136-145)
[2024-01-09 04:06] LABS: Bilirubin, Total 0.9 mg/dL (0.2-1.0); Total Protein 5.7 g/dL (5.7-8.2)
[2024-01-09 07:07] LABS: Base Excess 6.1 mmol/L (-2.0-3.0)
[2024-01-09] MEDS: POTASSIUM EFFERVESENT TAB 25 MEQ PO ONE (12:39)
[2024-01-10] VITALS (114 sets, daily range): BP systolic 93–120; BP diastolic 45–67; PULSE 68–91; RESP 15–26; TEMP 98.1–98.9; O2SAT 89–97
[2024-01-10 04:23] LABS: Basophils # (auto) 0 10 ^3/uL (0-0.2); Eosinophils # (auto) 0.4 10 ^3/uL (0-0.8); Neutrophils # (auto) 7.9 10 ^3/uL (1.6-8.6); Nucleated Red Blood Cells % 0.1 %
[2024-01-10 04:28] LABS: Basophils % (auto) 0.4 % (0.0-2.0); Eosinophils % (auto) 3.8 % (0.0-7.0); Hematocrit 32.7 % (41.0-53.0); Hemoglobin 10.6 g/dL (13.5-17.5); Lymphocytes # (auto) 0.5 10 ^3/uL (0.4-5.4); Lymphocytes % (auto) 5.4 % (10.0-50.0); Mean Corpuscular Hemoglobin 25.4 pg (28.0-32.0); Mean Corpuscular Hgb Conc. 32.4 g/dL (32.0-36.0); Mean Corpuscular Volume 78.3 fL (80.0-100.0); Neutrophils % (auto) 80.4 % (37.0-80.0); Platelet Count (auto) 201 10^3/uL (140-450); Red Blood Cells 4.18 10^6/uL (4.5-5.90); Red Cell Distribution Width 19.1 % (11.8-14.3); White Blood Cell 9.8 10^3/uL (4.4-10.8)
[2024-01-10 04:34] LABS: Alanine Aminotransferase 27 U/L (7-40); Alkaline Phosphatase 122 U/L (46-116); Anion Gap 5 (5-15); Aspartate Aminotransferase 50 U/L (13-40); BUN/Creatinine Ratio 18.6 (10.0-20.0); Bilirubin, Total 0.8 mg/dL (0.2-1.0); Blood Urea Nitrogen 11 mg/dL (9-23); Calcium 8.5 mg/dL (8.7-10.4); Carbon Dioxide 30 mmol/L (20-31); Chloride 105 mmol/L (98-107); Glucose 117 mg/dL (74-106); Potassium 3.5 mmol/L (3.5-5.1); Sodium 140 mmol/L (136-145); Total Protein 5.1 g/dL (5.7-8.2)
[2024-01-10 04:56] LABS: Magnesium 1.9 mg/dL (1.6-2.6)
[2024-01-10 07:48] LABS: Base Excess 6.8 mmol/L (-2.0-3.0)
[2024-01-10 08:00] LABS: Anisocytosis Slight; Hypochromia Slight; Platelet Estimate Adequate
[2024-01-10] MEDS ORDERED: TPN PER PHARMACY 0 ML IV SCH (14:00)
[2024-01-10] MEDS: POTASSIUM CHL 20MEQ/100ML 100 ML IV ONE (15:38)
[2024-01-10] MEDS: MAGNESIUM SULFATE 1GM/100ML 100 ML IV SCH (15:38)
[2024-01-10] MEDS: ACCU-CHEK COMFORT CURVE STRIP VI SCH (15:39)
[2024-01-10] MEDS: InsuLIN REG 1unit/0.01ml Soln (100units/ml) SC SCH (16:16)
[2024-01-10] MEDS ORDERED: DEXTROSE (50%) 50ML SYRG IV SCH (18:00)
[2024-01-10] MEDS: AMINO ACID INFUSION IN D10W 1,000 ML IV SCH (19:30)
[2024-01-11] VITALS (103 sets, daily range): BP systolic 83–127; BP diastolic 44–70; PULSE 64–84; RESP 16–46; TEMP 97.7–100.3; O2SAT 90–100
[2024-01-11 03:51] LABS: Basophils # (auto) 0 10 ^3/uL (0-0.2); Basophils % (auto) 0.4 % (0.0-2.0); Eosinophils # (auto) 0.4 10 ^3/uL (0-0.8); Eosinophils % (auto) 4.1 % (0.0-7.0); Hematocrit 34.7 % (41.0-53.0); Hemoglobin 11.3 g/dL (13.5-17.5); Lymphocytes # (auto) 0.6 10 ^3/uL (0.4-5.4); Mean Corpuscular Hemoglobin 25.4 pg (28.0-32.0); Mean Corpuscular Hgb Conc. 32.7 g/dL (32.0-36.0); Mean Corpuscular Volume 77.6 fL (80.0-100.0); Monocytes # (auto) 0.9 10 ^3/uL (0-1.3); Monocytes % (auto) 9.8 % (0.0-12.0); Neutrophils # (auto) 7.5 10 ^3/uL (1.6-8.6); Neutrophils % (auto) 79.7 % (37.0-80.0); Nucleated Red Blood Cells % 0.1 %; Platelet Count (auto) 243 10^3/uL (140-450); Red Blood Cells 4.47 10^6/uL (4.5-5.90); White Blood Cell 9.4 10^3/uL (4.4-10.8)
[2024-01-11 04:19] LABS: Alanine Aminotransferase 26 U/L (7-40); Albumin 3.1 g/dL (3.2-4.8); Alkaline Phosphatase 142 U/L (46-116); Anion Gap 6 (5-15); Aspartate Aminotransferase 47 U/L (13-40); BUN/Creatinine Ratio 22.4 (10.0-20.0); Blood Urea Nitrogen 13 mg/dL (9-23); Calcium 9.1 mg/dL (8.7-10.4); Carbon Dioxide 33 mmol/L (20-31); Chloride 102 mmol/L (98-107); Glucose 147 mg/dL (74-106); Magnesium 2.3 mg/dL (1.6-2.6); Phosphorus 1.7 mg/dL (2.4-5.1); Potassium 3.7 mmol/L (3.5-5.1); Sodium 141 mmol/L (136-145)
[2024-01-11 04:20] LABS: Bilirubin, Total 0.7 mg/dL (0.2-1.0); Total Protein 5.5 g/dL (5.7-8.2)
[2024-01-11 04:57] LABS: Triglycerides 112 mg/dL (< 150)
[2024-01-11 06:47] LABS: Base Excess 5.6 mmol/L (-2.0-3.0)
[2024-01-11] MEDS: POTASSIUM PHOSPHATE 26.4 MEQ in SODIUM CHL 0.9% 100 ML IV ONE (08:49)
[2024-01-11 10:30] LABS: % Iron Saturation 11.4 % (20-55)
[2024-01-11] MEDS: HYDROCORTISONE SOD SUCC 100 MG/2ML INJ VIAL IV SCH (12:50)
[2024-01-11] MEDS: ENOXAPARIN SOD 40 MG/0.4 ML SYRINGE SC SCH (12:50)
[2024-01-11] MEDS: LACTULOSE 20Gm/30ML SOLN PO ONE (17:51)
[2024-01-11] MEDS: TPN PER PHARMACY IV NR (20:27)
[2024-01-12] VITALS (110 sets, daily range): BP systolic 99–176; BP diastolic 42–90; PULSE 56–74; RESP 15–26; TEMP 96.9–98.1; O2SAT 91–99
[2024-01-12 04:42] LABS: Basophils # (auto) 0 10 ^3/uL (0-0.2); Basophils % (auto) 0.1 % (0.0-2.0); Eosinophils # (auto) 0 10 ^3/uL (0-0.8); Hemoglobin 11.6 g/dL (13.5-17.5); Lymphocytes # (auto) 0.3 10 ^3/uL (0.4-5.4); Monocytes # (auto) 0.5 10 ^3/uL (0-1.3); Neutrophils # (auto) 7.7 10 ^3/uL (1.6-8.6); Nucleated Red Blood Cells % 0.1 %
[2024-01-12 05:01] LABS: Alanine Aminotransferase 29 U/L (7-40); Albumin 3.1 g/dL (3.2-4.8); Alkaline Phosphatase 152 U/L (46-116); Anion Gap 5 (5-15); Aspartate Aminotransferase 52 U/L (13-40); BUN/Creatinine Ratio 23.2 (10.0-20.0); Bilirubin, Total 0.4 mg/dL (0.2-1.0); Blood Urea Nitrogen 13 mg/dL (9-23); Calcium 9.1 mg/dL (8.7-10.4); Carbon Dioxide 31 mmol/L (20-31); Chloride 103 mmol/L (98-107); Glucose 246 mg/dL (74-106); Phosphorus 2.7 mg/dL (2.4-5.1); Potassium 4.1 mmol/L (3.5-5.1); Sodium 139 mmol/L (136-145); Total Protein 5.6 g/dL (5.7-8.2)
[2024-01-12 05:07] LABS: Eosinophils % (auto) 0.1 % (0.0-7.0); Hematocrit 36.5 % (41.0-53.0); Lymphocytes % (auto) 3.3 % (10.0-50.0); Mean Corpuscular Hemoglobin 25.1 pg (28.0-32.0); Mean Corpuscular Hgb Conc. 31.9 g/dL (32.0-36.0); Mean Corpuscular Volume 78.8 fL (80.0-100.0); Monocytes % (auto) 5.5 % (0.0-12.0); Platelet Count (auto) 248 10^3/uL (140-450); Red Blood Cells 4.63 10^6/uL (4.5-5.90); Red Cell Distribution Width 19.2 % (11.8-14.3); White Blood Cell 8.4 10^3/uL (4.4-10.8)
[2024-01-12 06:31] LABS: Base Excess 5.5 mmol/L (-2.0-3.0)
[2024-01-12] MEDS: FUROSEMIDE 100 MG/10ML VIAL IV ONE (08:04)
[2024-01-12 11:42] LABS: Base Excess 6.4 mmol/L (-2.0-3.0)
[2024-01-12] MEDS ORDERED: FUROSEMIDE 40 MG/4 ML VIAL IV SCH (14:00)
[2024-01-12] MEDS: METOCLOPRAMIDE HCL 5MG/ml INJ 2ml VIAL IV SCH (15:04)
[2024-01-12 16:33] LABS: Base Excess 8.1 mmol/L (-2.0-3.0)
[2024-01-12] MEDS: FUROSEMIDE 40 MG/4 ML VIAL IV SCH (18:05)
[2024-01-12] MEDS: TPN PER PHARMACY IV NR (20:37)
[2024-01-12] MEDS: ENOXAPARIN SOD 120 MG/0.8 ML SYRINGE SC SCH (22:08)
[2024-01-13] VITALS (108 sets, daily range): BP systolic 94–130; BP diastolic 50–66; PULSE 60–96; RESP 12–26; TEMP 97.3–98.7; O2SAT 94–100
[2024-01-13 04:48] LABS: Basophils # (auto) 0 10 ^3/uL (0-0.2); Basophils % (auto) 0.2 % (0.0-2.0); Eosinophils # (auto) 0.1 10 ^3/uL (0-0.8); Eosinophils % (auto) 0.6 % (0.0-7.0); Hematocrit 34.4 % (41.0-53.0); Hemoglobin 11.3 g/dL (13.5-17.5); Lymphocytes # (auto) 0.5 10 ^3/uL (0.4-5.4); Lymphocytes % (auto) 4.7 % (10.0-50.0); Mean Corpuscular Hemoglobin 25.2 pg (28.0-32.0); Mean Corpuscular Hgb Conc. 32.8 g/dL (32.0-36.0); Mean Corpuscular Volume 76.8 fL (80.0-100.0); Monocytes # (auto) 0.9 10 ^3/uL (0-1.3); Monocytes % (auto) 8.3 % (0.0-12.0); Neutrophils # (auto) 9.1 10 ^3/uL (1.6-8.6); Neutrophils % (auto) 86.2 % (37.0-80.0); Nucleated Red Blood Cells % 0.1 %; Platelet Count (auto) 319 10^3/uL (140-450); Red Blood Cells 4.48 10^6/uL (4.5-5.90); Red Cell Distribution Width 18.6 % (11.8-14.3); White Blood Cell 10.6 10^3/uL (4.4-10.8)
[2024-01-13 05:21] LABS: Alanine Aminotransferase 31 U/L (7-40); Albumin 3.1 g/dL (3.2-4.8); Alkaline Phosphatase 140 U/L (46-116); Anion Gap 6 (5-15); Aspartate Aminotransferase 42 U/L (13-40); BUN/Creatinine Ratio 26.2 (10.0-20.0); Bilirubin, Total 0.5 mg/dL (0.2-1.0); Blood Urea Nitrogen 16 mg/dL (9-23); Calcium 9.1 mg/dL (8.7-10.4); Carbon Dioxide 38 mmol/L (20-31); Chloride 103 mmol/L (98-107); Glucose 188 mg/dL (74-106); Magnesium 2.2 mg/dL (1.6-2.6); Phosphorus 2.1 mg/dL (2.4-5.1); Potassium 2.8 mmol/L (3.5-5.1); Total Protein 5.5 g/dL (5.7-8.2)
[2024-01-13 05:24] LABS: Sodium 147 mmol/L (136-145)
[2024-01-13] MEDS: POTASSIUM CHL 20MEQ/100ML 100 ML IV SCH (06:29)
[2024-01-13 07:46] LABS: Base Excess 10.7 mmol/L (-2.0-3.0)
[2024-01-13 11:28] LABS: Base Excess 12.6 mmol/L (-2.0-3.0)
[2024-01-13] MEDS: POTASSIUM PHOSPHATE 22 MEQ in SODIUM CHL 0.9% 100 ML IV ONE (12:30)
[2024-01-13] MEDS: HYDROCORTISONE SOD SUCC 100 MG/2ML INJ VIAL IV SCH (15:29)
[2024-01-13 15:45] LABS: Anion Gap 4 (5-15); Carbon Dioxide 39 mmol/L (20-31); Chloride 106 mmol/L (98-107); Sodium 149 mmol/L (136-145)
[2024-01-13 15:46] LABS: Calcium 8.7 mg/dL (8.7-10.4)
[2024-01-13 15:51] LABS: BUN/Creatinine Ratio 39.2 (10.0-20.0); Blood Urea Nitrogen 20 mg/dL (9-23); Glucose 159 mg/dL (74-106)
[2024-01-13 16:50] LABS: Free T3 2.73 pg/mL (2.3-4.2)
[2024-01-13 16:52] LABS: Free T4 (Free Thyroxine) 0.77 ng/dL (0.89-1.76)
[2024-01-13 17:13] LABS: INR 1.17 (0.9-1.15); Partial Thromboplastin Time 33.3 SEC (24.5-34.5); Prothrombin Time 12.3 sec (9.3-11.8)
[2024-01-13] MEDS: LIDOCAINE 1% (LOCAL ANESTH.) PF 5ml SDV ID ONE (18:15)
[2024-01-13] MEDS: TPN PER PHARMACY IV NR (21:00)
[2024-01-13] MEDS: SODIUM CHLOR 0.9% PF (SALINE LOCK) 10ML VIAL/SYR IV SCH (22:00)
[2024-01-14] VITALS (107 sets, daily range): BP systolic 90–146; BP diastolic 48–86; PULSE 63–90; RESP 11–35; TEMP 97.5–98.1; O2SAT 94–100
[2024-01-14 04:09] LABS: Basophils # (auto) 0 10 ^3/uL (0-0.2); Basophils % (auto) 0.1 % (0.0-2.0); Eosinophils # (auto) 0 10 ^3/uL (0-0.8); Hemoglobin 11.6 g/dL (13.5-17.5); Monocytes # (auto) 0.4 10 ^3/uL (0-1.3)
[2024-01-14 04:15] LABS: Eosinophils % (auto) 0.3 % (0.0-7.0); Hematocrit 36.5 % (41.0-53.0); Lymphocytes # (auto) 0.5 10 ^3/uL (0.4-5.4); Lymphocytes % (auto) 6.6 % (10.0-50.0); Mean Corpuscular Hemoglobin 25.1 pg (28.0-32.0); Mean Corpuscular Hgb Conc. 31.8 g/dL (32.0-36.0); Mean Corpuscular Volume 78.8 fL (80.0-100.0); Monocytes % (auto) 5.4 % (0.0-12.0); Neutrophils # (auto) 6.8 10 ^3/uL (1.6-8.6); Neutrophils % (auto) 87.6 % (37.0-80.0); Nucleated Red Blood Cells % 0.2 %; Platelet Count (auto) 337 10^3/uL (140-450); Red Blood Cells 4.63 10^6/uL (4.5-5.90); Red Cell Distribution Width 19.8 % (11.8-14.3); White Blood Cell 7.7 10^3/uL (4.4-10.8)
[2024-01-14 04:23] LABS: Alanine Aminotransferase 36 U/L (7-40); Albumin 3.1 g/dL (3.2-4.8); Alkaline Phosphatase 160 U/L (46-116); Anion Gap 2 (5-15); Aspartate Aminotransferase 52 U/L (13-40); BUN/Creatinine Ratio 41.5 (10.0-20.0); Blood Urea Nitrogen 22 mg/dL (9-23); Carbon Dioxide 38 mmol/L (20-31); Chloride 107 mmol/L (98-107); Glucose 145 mg/dL (74-106); Magnesium 2.4 mg/dL (1.6-2.6); Potassium 4.5 mmol/L (3.5-5.1); Sodium 147 mmol/L (136-145)
[2024-01-14 04:24] LABS: Bilirubin, Total 0.5 mg/dL (0.2-1.0); Phosphorus 3.4 mg/dL (2.4-5.1); Total Protein 5.6 g/dL (5.7-8.2)
[2024-01-14 06:19] LABS: Base Excess 11.6 mmol/L (-2.0-3.0)
[2024-01-14] MEDS: FUROSEMIDE 40 MG/4 ML VIAL IV SCH (10:16)
[2024-01-14] MEDS ORDERED: ARTIFICIAL TEARS 15ml EACHEYE PRN (11:30)
[2024-01-14] MEDS: FREE WATER GT SCH (12:29)
[2024-01-14] MEDS: LACTULOSE 20Gm/30ML SOLN PO ONE (14:30)
[2024-01-14] MEDS: SENNA 8.6 MG TAB PO ONE (14:31)
[2024-01-14] MEDS: ARTIFICIAL TEARS 15ml EACHEYE SCH (21:55)
[2024-01-15] VITALS (105 sets, daily range): BP systolic 81–123; BP diastolic 41–69; PULSE 66–89; RESP 12–35; TEMP 98–98.9; O2SAT 91–100
[2024-01-15 04:04] LABS: Basophils # (auto) 0.1 10 ^3/uL (0-0.2); Basophils % (auto) 0.9 % (0.0-2.0); Eosinophils # (auto) 0.2 10 ^3/uL (0-0.8); Eosinophils % (auto) 3.6 % (0.0-7.0); Hematocrit 34.5 % (41.0-53.0); Hemoglobin 11.1 g/dL (13.5-17.5); Lymphocytes # (auto) 0.8 10 ^3/uL (0.4-5.4); Lymphocytes % (auto) 13.6 % (10.0-50.0); Mean Corpuscular Hgb Conc. 32.3 g/dL (32.0-36.0); Mean Corpuscular Volume 77.4 fL (80.0-100.0); Monocytes # (auto) 0.6 10 ^3/uL (0-1.3); Monocytes % (auto) 10.7 % (0.0-12.0); Neutrophils # (auto) 4.2 10 ^3/uL (1.6-8.6); Neutrophils % (auto) 71.2 % (37.0-80.0); Nucleated Red Blood Cells % 0.1 %; Platelet Count (auto) 289 10^3/uL (140-450); Red Blood Cells 4.45 10^6/uL (4.5-5.90); Red Cell Distribution Width 19.5 % (11.8-14.3); White Blood Cell 5.9 10^3/uL (4.4-10.8)
[2024-01-15 04:13] LABS: Alanine Aminotransferase 46 U/L (7-40); Albumin 3.1 g/dL (3.2-4.8); Alkaline Phosphatase 158 U/L (46-116); Anion Gap 3 (5-15); Aspartate Aminotransferase 67 U/L (13-40); BUN/Creatinine Ratio 48.1 (10.0-20.0); Blood Urea Nitrogen 25 mg/dL (9-23); Calcium 9.4 mg/dL (8.7-10.4); Carbon Dioxide 39 mmol/L (20-31); Chloride 109 mmol/L (98-107); Glucose 105 mg/dL (74-106); Magnesium 2.5 mg/dL (1.6-2.6); Sodium 151 mmol/L (136-145)
[2024-01-15 04:14] LABS: Bilirubin, Total 0.5 mg/dL (0.2-1.0); Total Protein 5.5 g/dL (5.7-8.2)
[2024-01-15] MEDS: POTASSIUM CHL 20MEQ/100ML 100 ML IV SCH (05:17)
[2024-01-15 07:41] LABS: Base Excess 11.5 mmol/L (-2.0-3.0)
[2024-01-15] MEDS: POLYETHYLENE GLYCOL 17 GM PWDR PO ONE (14:34)
[2024-01-15] MEDS: LACTULOSE 20Gm/30ML SOLN PO SCH (22:24)
[2024-01-16] VITALS (106 sets, daily range): BP systolic 88–125; BP diastolic 47–70; PULSE 65–88; RESP 12–34; TEMP 97.9–98.9; O2SAT 90–99
[2024-01-16 05:07] LABS: Basophils # (auto) 0.1 10 ^3/uL (0-0.2); Eosinophils # (auto) 0.6 10 ^3/uL (0-0.8); Mean Corpuscular Hgb Conc. 32.1 g/dL (32.0-36.0); Neutrophils # (auto) 4.8 10 ^3/uL (1.6-8.6); Neutrophils % (auto) 63.9 % (37.0-80.0); Red Cell Distribution Width 19.8 % (11.8-14.3)
[2024-01-16 05:12] LABS: Basophils % (auto) 0.9 % (0.0-2.0); Eosinophils % (auto) 7.9 % (0.0-7.0); Hemoglobin 11.9 g/dL (13.5-17.5); Lymphocytes # (auto) 1.1 10 ^3/uL (0.4-5.4); Lymphocytes % (auto) 14.6 % (10.0-50.0); Mean Corpuscular Hemoglobin 25.2 pg (28.0-32.0); Mean Corpuscular Volume 78.5 fL (80.0-100.0); Monocytes % (auto) 12.7 % (0.0-12.0); Nucleated Red Blood Cells % 0.1 %; Platelet Count (auto) 408 10^3/uL (140-450); Red Blood Cells 4.72 10^6/uL (4.5-5.90); White Blood Cell 7.5 10^3/uL (4.4-10.8)
[2024-01-16 05:23] LABS: Alanine Aminotransferase 45 U/L (7-40); Albumin 3.2 g/dL (3.2-4.8); Alkaline Phosphatase 177 U/L (46-116); Anion Gap 4 (5-15); Aspartate Aminotransferase 62 U/L (13-40); Bilirubin, Total 0.6 mg/dL (0.2-1.0); Blood Urea Nitrogen 24 mg/dL (9-23); Calcium 9.3 mg/dL (8.7-10.4); Carbon Dioxide 38 mmol/L (20-31); Chloride 108 mmol/L (98-107); Glucose 108 mg/dL (74-106); Magnesium 2.5 mg/dL (1.6-2.6); Potassium 3.8 mmol/L (3.5-5.1); Sodium 150 mmol/L (136-145); Total Protein 5.8 g/dL (5.7-8.2)
[2024-01-16 08:37] LABS: Base Excess 10.2 mmol/L (-2.0-3.0)
[2024-01-16] MEDS: FREE WATER GT SCH (14:01)
[2024-01-17] VITALS (108 sets, daily range): BP systolic 80–202; BP diastolic 17–106; PULSE 56–100; RESP 13–24; TEMP 98.8–99; O2SAT 89–100
[2024-01-17 04:58] LABS: Basophils # (auto) 0.1 10 ^3/uL (0-0.2); Eosinophils # (auto) 0.8 10 ^3/uL (0-0.8); Lymphocytes # (auto) 1.1 10 ^3/uL (0.4-5.4); Nucleated Red Blood Cells % 0.3 %; Red Blood Cells 4.73 10^6/uL (4.5-5.90)
[2024-01-17 04:59] LABS: Basophils % (auto) 0.9 % (0.0-2.0); Eosinophils % (auto) 9.8 % (0.0-7.0); Hematocrit 36.9 % (41.0-53.0); Hemoglobin 11.7 g/dL (13.5-17.5); Lymphocytes % (auto) 13.3 % (10.0-50.0); Mean Corpuscular Hemoglobin 24.8 pg (28.0-32.0); Mean Corpuscular Hgb Conc. 31.8 g/dL (32.0-36.0); Monocytes # (auto) 0.8 10 ^3/uL (0-1.3); Monocytes % (auto) 10.3 % (0.0-12.0); Neutrophils # (auto) 5.2 10 ^3/uL (1.6-8.6); Neutrophils % (auto) 65.7 % (37.0-80.0); Platelet Count (auto) 379 10^3/uL (140-450); Red Cell Distribution Width 19.1 % (11.8-14.3); White Blood Cell 7.9 10^3/uL (4.4-10.8)
[2024-01-17 05:22] LABS: Alanine Aminotransferase 47 U/L (7-40); Alkaline Phosphatase 205 U/L (46-116); Anion Gap 3 (5-15); Aspartate Aminotransferase 67 U/L (13-40); BUN/Creatinine Ratio 32.2 (10.0-20.0); Blood Urea Nitrogen 19 mg/dL (9-23); Calcium 9.2 mg/dL (8.7-10.4); Carbon Dioxide 38 mmol/L (20-31); Chloride 109 mmol/L (98-107); Glucose 123 mg/dL (74-106); Potassium 3.7 mmol/L (3.5-5.1); Sodium 150 mmol/L (136-145)
[2024-01-17 05:23] LABS: Bilirubin, Total 0.7 mg/dL (0.2-1.0); Total Protein 5.6 g/dL (5.7-8.2)
[2024-01-17 06:42] LABS: Base Excess 10.9 mmol/L (-2.0-3.0)
[2024-01-17] MEDS: FREE WATER GT SCH (14:38)
[2024-01-17] MEDS: FLEET ENEMA(ADULT) 135 ML PR ONE (16:05)
[2024-01-17] MEDS: FUROSEMIDE 40 MG/4 ML VIAL IV ONE (16:29)
[2024-01-18] VITALS (101 sets, daily range): BP systolic 91–124; BP diastolic 48–80; PULSE 58–100; RESP 14–24; TEMP 97.1–102.9; O2SAT 89–100
[2024-01-18] MEDS: ACETAMINOPHEN 325 MG TAB PO PRN (01:19)
[2024-01-18 05:04] LABS: Alanine Aminotransferase 37 U/L (7-40); Alkaline Phosphatase 180 U/L (46-116); Anion Gap 4 (5-15); Aspartate Aminotransferase 47 U/L (13-40); BUN/Creatinine Ratio 27.6 (10.0-20.0); Bilirubin, Total 0.7 mg/dL (0.2-1.0); Blood Urea Nitrogen 16 mg/dL (9-23); Calcium 9.1 mg/dL (8.7-10.4); Carbon Dioxide 36 mmol/L (20-31); Chloride 107 mmol/L (98-107); Glucose 123 mg/dL (74-106); Potassium 3.3 mmol/L (3.5-5.1); Sodium 147 mmol/L (136-145); Total Protein 5.5 g/dL (5.7-8.2)
[2024-01-18] MEDS: POTASSIUM CHL 20MEQ/100ML 100 ML IV SCH (06:07)
[2024-01-18 07:12] LABS: Basophils # (auto) 0 10 ^3/uL (0-0.2); Basophils % (auto) 0.3 % (0.0-2.0); Eosinophils # (auto) 0.1 10 ^3/uL (0-0.8); Eosinophils % (auto) 0.5 % (0.0-7.0); Hematocrit 37.6 % (41.0-53.0); Hemoglobin 11.9 g/dL (13.5-17.5); Lymphocytes # (auto) 0.7 10 ^3/uL (0.4-5.4); Lymphocytes % (auto) 4.4 % (10.0-50.0); Mean Corpuscular Hemoglobin 24.8 pg (28.0-32.0); Mean Corpuscular Hgb Conc. 31.7 g/dL (32.0-36.0); Mean Corpuscular Volume 78.2 fL (80.0-100.0); Monocytes # (auto) 1.3 10 ^3/uL (0-1.3); Monocytes % (auto) 8.2 % (0.0-12.0); Neutrophils # (auto) 13.9 10 ^3/uL (1.6-8.6); Neutrophils % (auto) 86.6 % (37.0-80.0); Platelet Count (auto) 343 10^3/uL (140-450); Red Blood Cells 4.81 10^6/uL (4.5-5.90); Red Cell Distribution Width 20.2 % (11.8-14.3)
[2024-01-18 07:46] LABS: Base Excess 6.3 mmol/L (-2.0-3.0)
[2024-01-18 10:05] LABS: Platelet Estimate Adequate
[2024-01-18 10:06] LABS: Anisocytosis Slight; Hypochromia Slight
[2024-01-18 11:20] LABS: INR 1.22 (0.9-1.15); Partial Thromboplastin Time 30.9 SEC (24.5-34.5); Prothrombin Time 12.7 sec (9.3-11.8)
[2024-01-18] MEDS ORDERED: MIDAZOLAM HCL 2MG/2ML 2ml VIAL (1mg/ml) ONE (12:04)
[2024-01-18] MEDS ORDERED: fentaNYL CITRATE 100 MCG/2 ML VL ONE (12:04)
[2024-01-18] MEDS ORDERED: HYDROmorphone HCL 2 MG/ML VL/or syr ONE (12:04)
[2024-01-18] MEDS: LIDOCAINE W/ EPINEPHRINE 1% 20ML VIAL ONE (13:02)
[2024-01-18] MEDS ORDERED: CIPROFLOXACIN 400MG/200ML 200 ML IV SCH (14:00)
[2024-01-18] MEDS ORDERED: CIPROFLOXACIN 400MG/200ML 200 ML IV ONE (14:00)
[2024-01-18 17:56] LABS: Urine Bacteria None Seen /hpf (None Seen)
[2024-01-18 18:12] LABS: Urine Blood 1+ /uL (Negative); Urine Clarity Clear (Clear); Urine Color Yellow (Yellow); Urine Mucus FEW (None Seen); Urine Protein, UAD 1+ (Negative); Urine Specific Gravity 1.025 (1.001-1.035); Urine Urobilinogen 8 mg/dL (Negative); Urine WBC 3 /hpf (0 - 3)
[2024-01-18] MEDS: MEROPENEM 2GM/ 250ML 250 ML IV SCH (19:56)
[2024-01-19] VITALS (107 sets, daily range): BP systolic 85–168; BP diastolic 43–87; PULSE 57–97; RESP 16–23; TEMP 97.6–98.4; O2SAT 92–100
[2024-01-19 04:28] LABS: Basophils # (auto) 0 10 ^3/uL (0-0.2); Eosinophils # (auto) 0 10 ^3/uL (0-0.8); Hemoglobin 11.6 g/dL (13.5-17.5); Lymphocytes # (auto) 0.5 10 ^3/uL (0.4-5.4); Monocytes # (auto) 0.6 10 ^3/uL (0-1.3); Monocytes % (auto) 3.9 % (0.0-12.0)
[2024-01-19 04:31] LABS: Basophils % (auto) 0.1 % (0.0-2.0); Lymphocytes % (auto) 3.5 % (10.0-50.0); Mean Corpuscular Hemoglobin 24.7 pg (28.0-32.0); Mean Corpuscular Hgb Conc. 32.1 g/dL (32.0-36.0); Mean Corpuscular Volume 76.8 fL (80.0-100.0); Neutrophils # (auto) 14.3 10 ^3/uL (1.6-8.6); Neutrophils % (auto) 92.5 % (37.0-80.0); Nucleated Red Blood Cells % 0.1 %; Platelet Count (auto) 369 10^3/uL (140-450); Red Blood Cells 4.68 10^6/uL (4.5-5.90); Red Cell Distribution Width 19.7 % (11.8-14.3); White Blood Cell 15.5 10^3/uL (4.4-10.8)
[2024-01-19 04:37] LABS: Anion Gap 5 (5-15); Carbon Dioxide 35 mmol/L (20-31); Chloride 105 mmol/L (98-107); Potassium 3.6 mmol/L (3.5-5.1); Sodium 145 mmol/L (136-145)
[2024-01-19 04:38] LABS: Calcium 9.3 mg/dL (8.7-10.4)
[2024-01-19 04:43] LABS: BUN/Creatinine Ratio 32.1 (10.0-20.0); Blood Urea Nitrogen 18 mg/dL (9-23); Glucose 143 mg/dL (74-106); Magnesium 2.4 mg/dL (1.6-2.6)
[2024-01-19 05:09] LABS: Large Platelets FEW; Stomatocytes Few
[2024-01-19 05:10] LABS: Platelet Estimate Adequa
[2024-01-19 08:21] LABS: Base Excess 8.6 mmol/L (-2.0-3.0)
[2024-01-19] MEDS: ENOXAPARIN SOD 120 MG/0.8 ML SYRINGE SC ONE (15:56)
[2024-01-19] MEDS ORDERED: NOREPINEPHRINE BITARTRATE 32 MG in SODIUM CHL 0.9% 218 ML IV SCH (21:00)
[2024-01-19] MEDS ORDERED: ENOXAPARIN SOD 100 MG/1 ML SYRINGE SC SCH (22:00)
[2024-01-19] MEDS: NOREPINEPHRINE BITARTRATE 32 MG in SODIUM CHL 0.9% 218 ML IV SCH (22:30)
[2024-01-20] VITALS (111 sets, daily range): BP systolic 19–146; BP diastolic 50–78; PULSE 10–88; RESP 13–23; TEMP 98–98.4; O2SAT 88–100
[2024-01-20 04:11] LABS: Basophils # (auto) 0 10 ^3/uL (0-0.2); Eosinophils # (auto) 0 10 ^3/uL (0-0.8); Monocytes % (auto) 7.5 % (0.0-12.0); Nucleated Red Blood Cells % 0.1 %
[2024-01-20 04:15] LABS: Basophils % (auto) 0.3 % (0.0-2.0); Eosinophils % (auto) 0.1 % (0.0-7.0); Hematocrit 35.2 % (41.0-53.0); Hemoglobin 11.3 g/dL (13.5-17.5); Lymphocytes # (auto) 0.9 10 ^3/uL (0.4-5.4); Lymphocytes % (auto) 6.5 % (10.0-50.0); Mean Corpuscular Hemoglobin 24.6 pg (28.0-32.0); Mean Corpuscular Hgb Conc. 32.1 g/dL (32.0-36.0); Mean Corpuscular Volume 76.5 fL (80.0-100.0); Neutrophils # (auto) 11.1 10 ^3/uL (1.6-8.6); Neutrophils % (auto) 85.6 % (37.0-80.0); Platelet Count (auto) 437 10^3/uL (140-450); Red Cell Distribution Width 19.8 % (11.8-14.3)
[2024-01-20] MEDS: ENOXAPARIN SOD 120 MG/0.8 ML SYRINGE SC SCH (04:26)
[2024-01-20 04:34] LABS: Alanine Aminotransferase 70 U/L (7-40); Alkaline Phosphatase 172 U/L (46-116); Anion Gap 5 (5-15); Aspartate Aminotransferase 93 U/L (13-40); BUN/Creatinine Ratio 34.7 (10.0-20.0); Bilirubin, Total 0.4 mg/dL (0.2-1.0); Blood Urea Nitrogen 17 mg/dL (9-23); Calcium 9.1 mg/dL (8.7-10.4); Carbon Dioxide 34 mmol/L (20-31); Chloride 106 mmol/L (98-107); Glucose 108 mg/dL (74-106); Magnesium 2.2 mg/dL (1.6-2.6); Potassium 3.1 mmol/L (3.5-5.1); Sodium 145 mmol/L (136-145); Total Protein 5.6 g/dL (5.7-8.2)
[2024-01-20 04:59] LABS: Anisocytosis Slight; Hypochromia Slight
[2024-01-20 05:00] LABS: Giant Platelets Few; Large Platelets FEW; Platelet Estimate Adequa
[2024-01-20 05:01] LABS: Stomatocytes Moderate
[2024-01-20] MEDS: POTASSIUM CHL 20MEQ/100ML 100 ML IV ONE (06:01)
[2024-01-20 07:28] LABS: Base Excess 8.6 mmol/L (-2.0-3.0)
[2024-01-20] MEDS: fentaNYL Drip 2500mCg/250mlNS 250 ML IV SCH (17:22)
[2024-01-20] MEDS: MIDAZOLAM DRIP 50 mg/50mL 50 ML IV SCH (18:01)
[2024-01-20] MEDS: NYSTATIN TOPICAL POWDER 15GM TOP SCH (22:00)
[2024-01-21] VITALS (104 sets, daily range): BP systolic 85–118; BP diastolic 48–71; PULSE 64–91; RESP 14–22; TEMP 97–98.7; O2SAT 91–99
[2024-01-21 04:11] LABS: Basophils # (auto) 0 10 ^3/uL (0-0.2); Eosinophils # (auto) 0.2 10 ^3/uL (0-0.8); Hemoglobin 10.9 g/dL (13.5-17.5); Lymphocytes # (auto) 0.9 10 ^3/uL (0.4-5.4); Mean Corpuscular Volume 77.5 fL (80.0-100.0); Monocytes # (auto) 0.7 10 ^3/uL (0-1.3); Neutrophils # (auto) 4.8 10 ^3/uL (1.6-8.6); Nucleated Red Blood Cells % 0.2 %
[2024-01-21 04:13] LABS: Basophils % (auto) 0.6 % (0.0-2.0); Eosinophils % (auto) 2.9 % (0.0-7.0); Hematocrit 34.1 % (41.0-53.0); Lymphocytes % (auto) 13.3 % (10.0-50.0); Mean Corpuscular Hemoglobin 24.8 pg (28.0-32.0); Mean Corpuscular Hgb Conc. 32.1 g/dL (32.0-36.0); Monocytes % (auto) 10.7 % (0.0-12.0); Neutrophils % (auto) 72.5 % (37.0-80.0); Platelet Count (auto) 276 10^3/uL (140-450); Red Blood Cells 4.39 10^6/uL (4.5-5.90); Red Cell Distribution Width 20.3 % (11.8-14.3); White Blood Cell 6.6 10^3/uL (4.4-10.8)
[2024-01-21 04:25] LABS: Alanine Aminotransferase 57 U/L (7-40); Albumin 2.7 g/dL (3.2-4.8); Alkaline Phosphatase 173 U/L (46-116); Anion Gap 5 (5-15); Aspartate Aminotransferase 64 U/L (13-40); BUN/Creatinine Ratio 37.8 (10.0-20.0); Bilirubin, Total 0.5 mg/dL (0.2-1.0); Blood Urea Nitrogen 17 mg/dL (9-23); Calcium 8.8 mg/dL (8.7-10.4); Carbon Dioxide 32 mmol/L (20-31); Chloride 109 mmol/L (98-107); Glucose 81 mg/dL (74-106); Magnesium 2.4 mg/dL (1.6-2.6); Potassium 3.5 mmol/L (3.5-5.1); Sodium 146 mmol/L (136-145); Total Protein 5.3 g/dL (5.7-8.2)
[2024-01-21 07:43] LABS: Base Excess 6.6 mmol/L (-2.0-3.0)
[2024-01-21] MEDS: FUROSEMIDE 20 MG/2 ML VIAL IV ONE (14:45)
[2024-01-21] MEDS: IOHEXOL 350 MG/ML 100ML IJ ONE (16:17)
[2024-01-22] VITALS (107 sets, daily range): BP systolic 103–151; BP diastolic 51–80; PULSE 68–89; RESP 15–25; TEMP 98.3–100.1; O2SAT 90–100
[2024-01-22 04:44] LABS: Basophils # (auto) 0 10 ^3/uL (0-0.2); Basophils % (auto) 0.3 % (0.0-2.0); Eosinophils # (auto) 0.3 10 ^3/uL (0-0.8); Hemoglobin 11.6 g/dL (13.5-17.5); Monocytes # (auto) 0.8 10 ^3/uL (0-1.3); Red Cell Distribution Width 20.6 % (11.8-14.3); White Blood Cell 8.1 10^3/uL (4.4-10.8)
[2024-01-22 04:46] LABS: Eosinophils % (auto) 3.3 % (0.0-7.0); Hematocrit 35.6 % (41.0-53.0); Lymphocytes % (auto) 12.4 % (10.0-50.0); Mean Corpuscular Hemoglobin 25.2 pg (28.0-32.0); Mean Corpuscular Hgb Conc. 32.7 g/dL (32.0-36.0); Mean Corpuscular Volume 77.1 fL (80.0-100.0); Monocytes % (auto) 10.5 % (0.0-12.0); Neutrophils # (auto) 5.9 10 ^3/uL (1.6-8.6); Neutrophils % (auto) 73.5 % (37.0-80.0); Nucleated Red Blood Cells % 0.2 %; Platelet Count (auto) 336 10^3/uL (140-450); Red Blood Cells 4.61 10^6/uL (4.5-5.90)
[2024-01-22 05:01] LABS: Alanine Aminotransferase 50 U/L (7-40); Alkaline Phosphatase 189 U/L (46-116); Anion Gap 6 (5-15); BUN/Creatinine Ratio 23.9 (10.0-20.0); Blood Urea Nitrogen 11 mg/dL (9-23); Carbon Dioxide 30 mmol/L (20-31); Chloride 108 mmol/L (98-107); Glucose 98 mg/dL (74-106); Magnesium 2.3 mg/dL (1.6-2.6); Potassium 3.7 mmol/L (3.5-5.1); Sodium 144 mmol/L (136-145)
[2024-01-22 05:02] LABS: Aspartate Aminotransferase 49 U/L (13-40)
[2024-01-22 05:03] LABS: Albumin 2.9 g/dL (3.2-4.8); Bilirubin, Total 0.5 mg/dL (0.2-1.0); Phosphorus 2.8 mg/dL (2.4-5.1); Total Protein 5.5 g/dL (5.7-8.2)
[2024-01-22 05:19] LABS: Calcium 8.5 mg/dL (8.7-10.4)
[2024-01-22 06:43] LABS: Base Excess 4.4 mmol/L (-2.0-3.0)
[2024-01-22 11:34] LABS: Base Excess 1.8 mmol/L (-2.0-3.0)
[2024-01-22] MEDS: FUROSEMIDE 40 MG/4 ML VIAL IV ONE (13:31)
[2024-01-22] MEDS: LACTULOSE 20Gm/30ML SOLN PO SCH (15:00)
[2024-01-23] VITALS (109 sets, daily range): BP systolic 104–152; BP diastolic 52–84; PULSE 72–90; RESP 15–25; TEMP 98.8–100.2; O2SAT 89–100
[2024-01-23 04:27] LABS: Basophils # (auto) 0 10 ^3/uL (0-0.2); Basophils % (auto) 0.4 % (0.0-2.0); Eosinophils # (auto) 0.4 10 ^3/uL (0-0.8); Eosinophils % (auto) 4.2 % (0.0-7.0); Hematocrit 36.5 % (41.0-53.0); Hemoglobin 11.8 g/dL (13.5-17.5); Lymphocytes # (auto) 0.8 10 ^3/uL (0.4-5.4); Lymphocytes % (auto) 8.4 % (10.0-50.0); Mean Corpuscular Hemoglobin 25.2 pg (28.0-32.0); Mean Corpuscular Hgb Conc. 32.4 g/dL (32.0-36.0); Mean Corpuscular Volume 77.8 fL (80.0-100.0); Monocytes % (auto) 10.4 % (0.0-12.0); Neutrophils # (auto) 7.5 10 ^3/uL (1.6-8.6); Neutrophils % (auto) 76.6 % (37.0-80.0); Platelet Count (auto) 347 10^3/uL (140-450); Red Cell Distribution Width 19.9 % (11.8-14.3); White Blood Cell 9.9 10^3/uL (4.4-10.8)
[2024-01-23 04:41] LABS: Alanine Aminotransferase 43 U/L (7-40); Alkaline Phosphatase 186 U/L (46-116); Anion Gap 4 (5-15); Aspartate Aminotransferase 38 U/L (13-40); BUN/Creatinine Ratio 17.4 (10.0-20.0); Blood Urea Nitrogen 8 mg/dL (9-23); Calcium 9.1 mg/dL (8.7-10.4); Carbon Dioxide 31 mmol/L (20-31); Chloride 109 mmol/L (98-107); Glucose 103 mg/dL (74-106); Magnesium 2.3 mg/dL (1.6-2.6); Phosphorus 2.7 mg/dL (2.4-5.1); Potassium 3.7 mmol/L (3.5-5.1); Sodium 144 mmol/L (136-145)
[2024-01-23 04:42] LABS: Bilirubin, Total 0.5 mg/dL (0.2-1.0); Total Protein 5.7 g/dL (5.7-8.2)
[2024-01-23 09:29] LABS: Base Excess 3.1 mmol/L (-2.0-3.0)
[2024-01-24] VITALS (99 sets, daily range): BP systolic 108–154; BP diastolic 54–87; PULSE 72–262; RESP 16–29; TEMP 99.6–100.8; O2SAT 88–100
[2024-01-24 04:11] LABS: Eosinophils # (auto) 0.4 10 ^3/uL (0-0.8); Hemoglobin 11.6 g/dL (13.5-17.5)
[2024-01-24 04:14] LABS: Basophils # (auto) 0.1 10 ^3/uL (0-0.2); Basophils % (auto) 0.5 % (0.0-2.0); Eosinophils % (auto) 3.8 % (0.0-7.0); Hematocrit 35.3 % (41.0-53.0); Lymphocytes % (auto) 9.6 % (10.0-50.0); Mean Corpuscular Hemoglobin 25.3 pg (28.0-32.0); Mean Corpuscular Hgb Conc. 32.8 g/dL (32.0-36.0); Mean Corpuscular Volume 77.2 fL (80.0-100.0); Monocytes # (auto) 1.2 10 ^3/uL (0-1.3); Monocytes % (auto) 11.8 % (0.0-12.0); Neutrophils # (auto) 7.4 10 ^3/uL (1.6-8.6); Neutrophils % (auto) 74.3 % (37.0-80.0); Platelet Count (auto) 344 10^3/uL (140-450); Red Blood Cells 4.58 10^6/uL (4.5-5.90); Red Cell Distribution Width 20.7 % (11.8-14.3); White Blood Cell 9.9 10^3/uL (4.4-10.8)
[2024-01-24 04:27] LABS: Chloride 110 mmol/L (98-107); Potassium 3.7 mmol/L (3.5-5.1); Sodium 146 mmol/L (136-145)
[2024-01-24 04:28] LABS: Anion Gap 5 (5-15); Carbon Dioxide 31 mmol/L (20-31)
[2024-01-24 04:29] LABS: Calcium 9.1 mg/dL (8.7-10.4)
[2024-01-24 04:33] LABS: BUN/Creatinine Ratio 17.4 (10.0-20.0); Blood Urea Nitrogen 8 mg/dL (9-23); Glucose 105 mg/dL (74-106)
[2024-01-24 08:22] LABS: Base Excess 4.6 mmol/L (-2.0-3.0)
[2024-01-24] MEDS: BISACODYL 10 MG RECT SUPP PR ONE (08:34)
[2024-01-24] MEDS: METOCLOPRAMIDE HCL 5MG/ml INJ 2ml VIAL IV SCH (14:00)
[2024-01-24] MEDS ORDERED: ONDANSETRON HCL 4 MG/2 ML VIAL IV PRN (20:00)
[2024-01-24] MEDS: FUROSEMIDE 20 MG/2 ML VIAL IV ONE (21:04)
[2024-01-25] VITALS (87 sets, daily range): BP systolic 123–173; BP diastolic 59–81; PULSE 76–96; RESP 13–25; TEMP 98.6–100.2; O2SAT 90–100
[2024-01-25 04:22] LABS: Basophils # (auto) 0 10 ^3/uL (0-0.2); Lymphocytes # (auto) 0.9 10 ^3/uL (0.4-5.4); Monocytes # (auto) 1.4 10 ^3/uL (0-1.3)
[2024-01-25 04:24] LABS: Basophils % (auto) 0.4 % (0.0-2.0); Eosinophils # (auto) 0.2 10 ^3/uL (0-0.8); Eosinophils % (auto) 2.6 % (0.0-7.0); Hematocrit 36.3 % (41.0-53.0); Lymphocytes % (auto) 9.1 % (10.0-50.0); Mean Corpuscular Hemoglobin 25.4 pg (28.0-32.0); Mean Corpuscular Hgb Conc. 32.9 g/dL (32.0-36.0); Monocytes % (auto) 14.1 % (0.0-12.0); Neutrophils # (auto) 7.1 10 ^3/uL (1.6-8.6); Neutrophils % (auto) 73.8 % (37.0-80.0); Platelet Count (auto) 357 10^3/uL (140-450); Red Blood Cells 4.72 10^6/uL (4.5-5.90); White Blood Cell 9.6 10^3/uL (4.4-10.8)
[2024-01-25 04:29] LABS: Red Cell Distribution Width 20.2 % (11.8-14.3)
[2024-01-25 04:36] LABS: Chloride 112 mmol/L (98-107); Potassium 3.4 mmol/L (3.5-5.1); Sodium 146 mmol/L (136-145)
[2024-01-25 04:37] LABS: Anion Gap 4 (5-15); Calcium 8.9 mg/dL (8.7-10.4); Carbon Dioxide 30 mmol/L (20-31)
[2024-01-25 04:42] LABS: BUN/Creatinine Ratio 18.2 (10.0-20.0); Blood Urea Nitrogen 8 mg/dL (9-23); Glucose 105 mg/dL (74-106)
[2024-01-25 04:43] LABS: Magnesium 2.4 mg/dL (1.6-2.6)
[2024-01-25 06:54] LABS: Base Excess 5.1 mmol/L (-2.0-3.0)
[2024-01-25] MEDS: POTASSIUM CHL 20MEQ/100ML 100 ML IV SCH (12:18)
[2024-01-25] MEDS ORDERED: LABETALOL HCL 20 MG/4 ML VL IV PRN (14:45)
[2024-01-25] MEDS ORDERED: CeftoloZANE-TAZOB 3 GM in D5W 5% 100 ML IV SCH ×2 (15:00→22:00)
[2024-01-25] MEDS: CeftoloZANE-TAZOB 3 GM in D5W 5% 100 ML IV SCH (16:20)
[2024-01-25] MEDS: FREE WATER GT SCH (17:13)
[2024-01-26] VITALS (104 sets, daily range): BP systolic 99–157; BP diastolic 51–101; PULSE 82–105; RESP 19–35; TEMP 97.6–99.3; O2SAT 79–100
[2024-01-26 03:49] LABS: Basophils # (auto) 0 10 ^3/uL (0-0.2); Eosinophils # (auto) 0.5 10 ^3/uL (0-0.8); Lymphocytes # (auto) 0.8 10 ^3/uL (0.4-5.4)
[2024-01-26 03:51] LABS: Basophils % (auto) 0.4 % (0.0-2.0); Eosinophils % (auto) 5.9 % (0.0-7.0); Hematocrit 35.8 % (41.0-53.0); Hemoglobin 11.5 g/dL (13.5-17.5); Lymphocytes % (auto) 8.4 % (10.0-50.0); Mean Corpuscular Hemoglobin 25.3 pg (28.0-32.0); Mean Corpuscular Hgb Conc. 32.2 g/dL (32.0-36.0); Mean Corpuscular Volume 78.5 fL (80.0-100.0); Monocytes # (auto) 1.3 10 ^3/uL (0-1.3); Neutrophils # (auto) 6.5 10 ^3/uL (1.6-8.6); Neutrophils % (auto) 71.3 % (37.0-80.0); Platelet Count (auto) 340 10^3/uL (140-450); Red Blood Cells 4.56 10^6/uL (4.5-5.90); White Blood Cell 9.2 10^3/uL (4.4-10.8)
[2024-01-26 03:55] LABS: Red Cell Distribution Width 20.9 % (11.8-14.3)
[2024-01-26 04:00] LABS: Alanine Aminotransferase 25 U/L (7-40); Albumin 2.7 g/dL (3.2-4.8); Alkaline Phosphatase 151 U/L (46-116); Anion Gap 3 (5-15); Aspartate Aminotransferase 24 U/L (13-40); BUN/Creatinine Ratio 23.3 (10.0-20.0); Bilirubin, Total 0.5 mg/dL (0.2-1.0); Blood Urea Nitrogen 10 mg/dL (9-23); Calcium 8.8 mg/dL (8.7-10.4); Carbon Dioxide 30 mmol/L (20-31); Chloride 114 mmol/L (98-107); Glucose 98 mg/dL (74-106); Potassium 3.6 mmol/L (3.5-5.1); Sodium 147 mmol/L (136-145); Total Protein 5.5 g/dL (5.7-8.2)
[2024-01-26 07:22] LABS: Base Excess 2.7 mmol/L (-2.0-3.0)
[2024-01-26] MEDS: CeftoloZANE-TAZOB 3 GM in D5W 5% 100 ML IV SCH (10:01)
[2024-01-26] MEDS: FUROSEMIDE 40 MG/4 ML VIAL IV ONE (12:32)
[2024-01-26] MEDS: PSYLLIUM PWD 5.8GM PKG GT ONE (13:15)
[2024-01-26] MEDS: LORazepam 2MG/ML-1ML VIAL IV PRN (21:05)
[2024-01-26] MEDS: MORPHINE SULFATE INJ 2 MG/ml SYRG IV PRN (22:04)
[2024-01-27] VITALS (12 sets, daily range): BP systolic 117–147; BP diastolic 59–77; PULSE 79–108; RESP 20–28; TEMP 96.9–99.8; O2SAT 8–100
[2024-01-28] VITALS: BP 116/63; PULSE 124; RESP 40; O2SAT 29
[2024-01-28 01:45] VITALS: BP 118/65; PULSE 125; RESP 40
== END 2024-01-28 09:38 | DRG 3 ==
LOC: ER 07:45 → TELE 13:09 → TELE-WESTW 15:47 → DOU IN ICU 20:00 → TELE-WESTW 12-25 12:37 → ICU WEST 12-31 03:55 → TELE-CENTR 01-26 23:59
PROVIDERS: ADMIT Internal Medicine; ATTEND Internal Medicine
PROC: 0W9B30Z Drainage of Left Pleural Cavity with Drainage Device, Percutaneous Approach (ICD-10-PCS; 2023-12-24)
PROC: 5A1955Z Respiratory Ventilation, Greater than 96 Consecutive Hours (ICD-10-PCS; 2023-12-31)
PROC: 0BH18EZ Insertion of Endotracheal Airway into Trachea, Via Natural or Artificial Opening Endoscopic (ICD-10-PCS; 2023-12-31)
PROC: 0W9B00Z Drainage of Left Pleural Cavity with Drainage Device, Open Approach (ICD-10-PCS; principal; 2023-12-31 05:57)
PROC: 02HV33Z Insertion of Infusion Device into Superior Vena Cava, Percutaneous Approach (ICD-10-PCS; 2024-01-01)
PROC: B548ZZA Ultrasonography of Superior Vena Cava, Guidance (ICD-10-PCS; 2024-01-01)
PROC: 0BH17EZ Insertion of Endotracheal Airway into Trachea, Via Natural or Artificial Opening (ICD-10-PCS; 2024-01-05)
PROC: 0B978ZZ Drainage of Left Main Bronchus, Via Natural or Artificial Opening Endoscopic (ICD-10-PCS; 2024-01-05)
PROC: 0BH17EZ Insertion of Endotracheal Airway into Trachea, Via Natural or Artificial Opening (ICD-10-PCS; 2024-01-07)
PROC: 0BBG0ZZ Excision of Left Upper Lung Lobe, Open Approach (ICD-10-PCS; 2024-01-08)
PROC: 02HV33Z Insertion of Infusion Device into Superior Vena Cava, Percutaneous Approach (ICD-10-PCS; 2024-01-13)
PROC: B548ZZA Ultrasonography of Superior Vena Cava, Guidance (ICD-10-PCS; 2024-01-13)
PROC: 0B110F4 Bypass Trachea to Cutaneous with Tracheostomy Device, Open Approach (ICD-10-PCS; 2024-01-18)
DX: A41.50 Gram-negative sepsis, unspecified (principal); I50.43 Acute on chronic combined systolic (congestive) and diastolic (congestive) heart failure; R65.21 Severe sepsis with septic shock; J15.1 Pneumonia due to Pseudomonas; J93.0 Spontaneous tension pneumothorax; J80 Acute respiratory distress syndrome; T79.7XXA Traumatic subcutaneous emphysema, initial encounter; J44.1 Chronic obstructive pulmonary disease with (acute) exacerbation; J98.11 Atelectasis; E87.0 Hyperosmolality and hypernatremia; J44.0 Chronic obstructive pulmonary disease with (acute) lower respiratory infection; J93.82 Other air leak; E87.4 Mixed disorder of acid-base balance; Z99.11 Dependence on respirator [ventilator] status; D68.9 Coagulation defect, unspecified; K56.7 Ileus, unspecified; E03.9 Hypothyroidism, unspecified; J60 Coalworker's pneumoconiosis; D50.9 Iron deficiency anemia, unspecified; E66.01 Morbid (severe) obesity due to excess calories; K21.9 Gastro-esophageal reflux disease without esophagitis; E11.9 Type 2 diabetes mellitus without complications; E87.6 Hypokalemia; Z20.822 Contact with and (suspected) exposure to COVID-19; E83.39 Other disorders of phosphorus metabolism; K59.00 Constipation, unspecified; I11.0 Hypertensive heart disease with heart failure; Z68.34 Body mass index [BMI] 34.0-34.9, adult; Z79.01 Long term (current) use of anticoagulants; Z82.0 Family history of epilepsy and other diseases of the nervous system; Z82.49 Family history of ischemic heart disease and other diseases of the circulatory system; Z83.3 Family history of diabetes mellitus; Z86.711 Personal history of pulmonary embolism; Z86.718 Personal history of other venous thrombosis and embolism; Z87.891 Personal history of nicotine dependence; Z99.81 Dependence on supplemental oxygen
CPT/HCPCS: 31645; 36415; 36569; 36600; 71045; 71250; 71275; 74018; 74176; 76604; 76937; 80048; 80053; 80061; 80307; 81001; 82728; 82805; 82962; 83036; 83540; 83550; 83605; 83735; 83880; 84100; 84439; 84443; 84478; 84481; 84484; 85014; 85018; 85025; 85379; 85610; 85730; 86850; 86900; 86901; 87040; 87070; 87077; 87081; 87086; 87186; 87205; 87426; 93005; 93306; 93970; 94002; 94003; 94640; 94668; 99291; G0378; J0330; J1815; J1956; J2001; J2185; J2250; J2470; J3480; J3490; J7060; J7131